=== PATIENT | male | born 1930 | race Caucasian/White ===

== ENCOUNTER → 2016-05-08 | Outpatient (CLI) | payer MEDICARE, OTHER ==
[~2016-05-08] MED LIST: ALLE10TA10 PO; AMIO200T PO; ASPI1TAB69 PO; ASPI81TA82 PO; CALCTAB23 PO; FURO1TAB62 PO; GABA300C3 PO; GINK120T2 PO; GLUC500C3 PO; GLUC500C5 PO; GNP120TA3 PO; LASI20TA PO; LEVO.025 PO; LEVO25TA4 PO; LIDO5DIS35 TD; LORA-373 PO; LORA0.5T PO; LYSI1TAB2 PO; LYSI1TAB4 PO; METH500T3 PO; METO50TA11 PO; MULTTAB23 PO; OXYC1TAB63 PO; PACE200T4 PO; POTA-243 PO; POTA-267 PO; RAMI10CA PO; SENITAB PO; SENN1TAB PO; TOPR50TA PO; VITA100018 PO; VITA100064 PO; WARF-20 PO; [UNRECOGNIZED DRUG - CODE] PO; [UNRECOGNIZED DRUG - CODE] PO
[2016-05-08 10:28] LABS: MEAN CELL VOLUME 94.6 FL (80.0-100.0); MEAN CORPUSCULAR HEMOGLOBIN 31.8 PG (27.0-34.0); MEAN CORPUSCULAR HGB CONC 33.6 % (32.0-36.0); PLATELET COUNT 190 TH/MM3 (150-450); RED BLOOD COUNT 4.44 MIL/MM3 (4.50-5.90); RED CELL DISTRIBUTION WIDTH 13.9 % (11.6-17.2); REVIEW FLAG FINAL
[2016-05-08 11:07] LABS: ALKALINE PHOSPHATASE 77 U/L (45-117); ALT (GPT) 30 U/L (12-78); ANION GAP 10 MEQ/L (5-15); AST (GOT) 21 U/L (15-37); BICARBONATE 26.3 MEQ/L (21.0-32.0); BLOOD UREA NITROGEN 21 MG/DL (7-18); CHLORIDE 111 MEQ/L (98-107); GLOMERULAR FILTRATION RATE 84 ML/MIN (>89); GLUCOSE,FASTING 89 MG/DL (74-99); HDL CHOLESTEROL 66.8 MG/DL (40.0-60.0); LDL CHOLESTEROL 43 MG/DL (0-99); POTASSIUM 4.3 MEQ/L (3.5-5.1); SODIUM (NA) 147 MEQ/L (136-145); TOTAL BILIRUBIN ADULT 0.5 MG/DL (0.2-1.0)
== END ==
LOC: PLAB 08:57
PROVIDERS: ATTEND Internal Medicine Interventional Cardiology
DX: I48.91 Unspecified atrial fibrillation (principal); R53.83 Other fatigue; I10 Essential (primary) hypertension; E78.00 Pure hypercholesterolemia, unspecified; I25.10 Atherosclerotic heart disease of native coronary artery without angina pectoris; I11.9 Hypertensive heart disease without heart failure; E78.2 Mixed hyperlipidemia; I44.7 Left bundle-branch block, unspecified; I35.1 Nonrheumatic aortic (valve) insufficiency
CPT/HCPCS: 36415; 80053; 80061; 84443; 85027

== ENCOUNTER 2016-06-06 13:31 | Inpatient (IN) | payer MEDICARE, OTHER ==
[~2016-06-06] VITALS: Ht 162.6 cm; Wt 68.1 kg
[~2016-06-06 13:31] MED LIST changes: -ALLE10TA10 PO; -AMIO200T PO; -ASPI1TAB69 PO; -CALCTAB23 PO; -FURO1TAB62 PO; -GINK120T2 PO; -GLUC500C5 PO; -LEVO25TA4 PO; -LIDO5DIS35 TD; -LORA-373 PO; -LYSI1TAB4 PO; -METH500T3 PO; -MULTTAB23 PO; -OXYC1TAB63 PO; -POTA-243 PO; -SENN1TAB PO; -TOPR50TA PO; -VITA100064 PO
[2016-06-06 13:39] VITALS: BP 119/68; PULSE 107; RESP 16; TEMP 97.5; O2SAT 99
[2016-06-06] MEDS ORDERED: ASPI1TAB69 PO (14:10)
[2016-06-06] MEDS ORDERED: LORA-373 PO (14:10)
[2016-06-06] MEDS ORDERED: [UNRECOGNIZED DRUG - CODE] PO (14:10)
[2016-06-06] MEDS ORDERED: POTA-243 PO (14:10)
[2016-06-06] MEDS ORDERED: RAMI10CA PO (14:10)
[2016-06-06] MEDS ORDERED: VITA100064 PO (14:10)
[2016-06-06] MEDS ORDERED: GINK120T2 PO (14:10)
[2016-06-06] MEDS ORDERED: MULTTAB23 PO (14:10)
[2016-06-06] MEDS ORDERED: ALLE10TA10 PO (14:10)
[2016-06-06] MEDS ORDERED: FURO1TAB62 PO (14:10)
[2016-06-06] MEDS ORDERED: TOPR50TA PO (14:10)
[2016-06-06] MEDS ORDERED: GLUC500C5 PO (14:10)
[2016-06-06] MEDS ORDERED: WARF-20 PO (14:10)
[2016-06-06] MEDS ORDERED: AMIO200T PO (14:10)
[2016-06-06] MEDS ORDERED: LYSI1TAB4 PO (14:10)
[2016-06-06] MEDS ORDERED: CALCTAB23 PO (14:10)
[2016-06-06] MEDS ORDERED: LEVO25TA4 PO (14:10)
[2016-06-06] MEDS ORDERED: ONDANSETRON HCL 4 MG/2 ML VIAL IV PUSH ONE ×2 (14:45→18:15)
[2016-06-06] MEDS ORDERED: MORPHINE SULFATE 4 MG/ML INJ IV PUSH ONE ×3 (14:45→19:15)
--- NOTE | 2016-06-06 15:15 | PD ---
HPI Chief Complaint: Fall Time Seen by Provider: 14:19 Travel History International Travel<30 days: No Contact w/Intl Traveler<30days: No Traveled to known affect area: No History of Present Illness HPI Patient is an 85-year-old male comes in after a trip and fall today. He says he was working in the yard when he tripped over a sprinkler head and fell onto his left side. He is complaining of pain to his left shoulder and his left ribs. He has a lot of pain with movement of the left shoulder, and pain with taking a deep breath. He took 2 Tylenol at home prior to coming in. He does report taking Coumadin. He says he did not hit his head. His family member with him says he saw him fall and says that he definitely did not hit his head. He denies any headache, neck pain. He denies having any chest pain or dizziness prior to the fall. PFSH Past Medical History Hx Anticoagulant Therapy: Yes (coumadin therapy) Atrial Fibrillation: Yes Cancer: No Cardiovascular Problems: Yes (htn on meds, 5 vessel bypass 1991) High Cholesterol: Yes Coronary Artery Disease: Yes Diminished Hearing: No Endocrine: No GERD: Yes Genitourinary: Yes Hypertension: Yes Implanted Vascular Access Dvce: No Kidney Stones: Yes Past Surgical History Cholecystectomy: Yes Coronary Artery Bypass Graft: Yes (5 arteries) Eye Surgery: Yes (bilat cataract removal) Other Surgery: Yes (testicular sx) Social History Alcohol Use: No Tobacco Use: No Substance Use: No Allergies-Medications (Allergen,Severity, Reaction): Coded Allergies: Codeine (Verified Allergy, Severe, Nausea/Vomiting, 06/06/16) Reported Meds & Prescriptions Reported Meds & Active Scripts Active Reported Aspirin 81 Mg Tabdr 81 Mg PO DAILY Lorazepam 0.5 Mg Tab 1 Mg PO HS PRN Klor-Con 10 (Potassium Chloride) 10 Meq Tab 10 Meq PO DAILY Lasix (Furosemide) 20 Mg Tab 20 Mg PO DAILY Glucosamine (Glucosamine Sulfate) 500 Mg Cap 500 Mg PO DAILY Ginkgo Biloba 120 Mg Tab 1 Tab PO DAILY Lysine (Lysine HCl) 500 Mg Tab 1 Tab PO DAILY Allergy (Loratadine) 10 Mg Tab 1 Tab PO DAILY Warfarin 4 Mg Tab 4 Mg PO DAILY Levothyroxine (Levothyroxine Sodium) 25 Mcg Tab 25 Mcg PO DAILY Toprol XL (Metoprolol Succinate) 50 Mg Tab 50 Mg PO DAILY Vitamin D (Cholecalciferol) 1,000 Unit Tab 1,000 Units PO DAILY Amiodarone (Amiodarone HCl) 200 Mg Tab 100 Mg PO 3 TIMES A WEEK Multi For Him 50+ (Multiple Vitamins W/ Minerals) 1 Tab Tab 1 Tab PO DAILY Ramipril 10 Mg Cap 10 Mg PO DAILY Calcium 500 + D (Calcium Carbonate-Vitamin D) 500-125 Mg-Unit Tab 1 Tab PO DAILY Caduet (Amlodipine-Atorvastatin) 5-40 Mg Tab 1 Tab PO DAILY Review of Systems Except as stated in HPI: all other systems reviewed are Neg General / Constitutional: No: Fever, Chills Eyes: No: Blurred Vision HENT: No: Headaches, Lightheadedness Cardiovascular: No: Chest Pain or Discomfort Respiratory: No: Shortness of Breath Gastrointestinal: No: Nausea, Vomiting Musculoskeletal: Positive: Arthralgias, Limited ROM Skin: No Change in Pigmentation Neurologic: No: Weakness, Dizziness, Sensory Disturbance Physical Exam Narrative GENERAL: Awake and alert in mild distress due to pain. SKIN: Warm and dry. HEAD: Atraumatic. Normocephalic. EYES: Pupils equal and round. No scleral icterus. ENT: Mucous membranes pink and moist. NECK: Trachea midline. No JVD. No cervical spine tenderness. CARDIOVASCULAR: Regular rate and rhythm. No murmur appreciated. Tender to palpation of the posterior chest on the left side. RESPIRATORY: No accessory muscle use. Clear to auscultation. Breath sounds equal bilaterally. MUSCULOSKELETAL: Tender to palpation of the left anterior shoulder. Unable to fully abduct the left shoulder. Radial pulse intact. Sensation intact to the left arm. NEUROLOGICAL: Awake and alert. No obvious cranial nerve deficits. Motor grossly within normal limits. Normal speech. PSYCHIATRIC: Appropriate mood and affect; insight and judgment normal. Data Data Last Documented VS Vital Signs Date Time Temp Pulse Resp B/P Pulse Ox O2 Delivery O2 Flow Rate FiO2 06/06/16 13:39 97.5 107 16 119/68 99 Orders Iv Access Insert/Monitor (06/06/16 14:36) Act Partial Throm Time (Ptt) (06/06/16 14:36) Prothrombin Time / Inr (Pt) (06/06/16 14:36) Morphine Inj (Morphine Inj) (06/06/16 14:45) Ondansetron Inj (Zofran Inj) (06/06/16 14:45) Ribs, Uni (W/Exp Cxr-Min 3vw) (06/06/16 ) Shoulder, Complete (>2vws) (06/06/16 ) Ct Shoulder W/O Contrast (06/06/16 ) Morphine Inj (Morphine Inj) (06/06/16 16:00) Labs Laboratory Tests Test 06/06/16 15:07 Prothrombin Time 21.2 SEC Prothromb Time International 1.9 RATIO Ratio Activated Partial 30.6 SEC Thromboplast Time MDM Medical Decision Making Medical Screen Exam Complete: Yes Emergency Medical Condition: Yes Medical Record Reviewed: Yes Differential Diagnosis Humeral fracture versus shoulder dislocation versus rib fracture Narrative Course Patient is an 85-year-old male comes in after a fall today complaining of left shoulder pain and left rib pain. Exam shows tenderness to the left shoulder as well as pain with abduction of the shoulder. X-ray obtained of the shoulder and the ribs. X-ray shows subtle fractures of the posterior eighth and ninth ribs. Shoulder x-ray shows degenerative changes and rotator cuff injury. Patient is still unable to completely abduct his left shoulder. CT will be obtained to look for any occult fracture. Patient given morphine for pain with some improvement of symptoms. Patient signed out to Dr. Cueto to follow up CT and disposition appropriately. Will need incentive spirometer when discharged. Leonor Katz MD Jun 06, 2016 15:15
--- NOTE | 2016-06-06 15:24 | RADHPO ---
EXAM DATE/TIME: 06/06/2016 14:44 [facility] COMPARISON: No previous studies available for comparison. INDICATIONS : Left side pain after falling in the yard today. MEDICAL HISTORY : None. SURGICAL HISTORY : None. ENCOUNTER: Initial ACUITY: 1 day PAIN SCORE: 8/10 LOCATION: Left ribs. FINDINGS: Multiple views of the left ribs were performed. There is subtle nondisplaced fractures of left eighth and ninth posterior lateral ribs. No destructive lesions or areas of periosteal thickening are seen. Pleural calcifications are present. Expiratory view of the chest is negative for pneumothorax. The mediastinal structures are midline. The patient status post median sternotomy. CONCLUSION: Subtle nondisplaced fractures of the left eighth and ninth posterior lateral ribs. Dino Byrd MD on June 06, 2016 at 15:20 Board Certified Radiologist. This report was verified electronically.
--- NOTE | 2016-06-06 15:26 | RADHPO ---
EXAM DATE/TIME: 06/06/2016 14:50 [facility] COMPARISON: No previous studies available for comparison. INDICATIONS : Left shoulder pain after falling in the yard today. MEDICAL HISTORY : None. SURGICAL HISTORY : None. ENCOUNTER: Initial ACUITY: 1 day PAIN SCORE: 8/10 LOCATION: Left shoulder. FINDINGS: AP views of the left shoulder were obtained with internal and external rotation as well as Y. view of the scapula. This demonstrates chronic rotator cuff degeneration with superior migration of the myla ral head and narrowing of the acromiohumeral distance. There is sclerosis and eburnation of the acrom ion. There is diffuse osteopenia with no acute fracture. The soft tissues are unremarkable. CONCLUSION: 1. Evidence of chronic rotator cuff degeneration as described. 2. Osteopenia with no acute fracture or malalignment. Dino Byrd MD on June 06, 2016 at 15:23 Board Certified Radiologist. This report was verified electronically.
[2016-06-06 16:08] LABS: APTT (PATIENT) 30.6 SEC (24.3-30.1); INTERNATIONAL NORMALIZED RATIO 1.9 RATIO; PROTHROMBIN TIME - PATIENT 21.2 SEC (9.8-11.6)
--- NOTE | 2016-06-06 17:38 | RADHPO ---
EXAM DATE/TIME: 06/06/2016 17:00 [facility] COMPARISON: SHOULDER LEFT COMPLETE (>2VWS), June 06, 2016, 14:50. INDICATIONS : Left shoulder pain post fall. RADIATION DOSE: 19.61 CTDIvol (mGy) MEDICAL HISTORY : Hypertension. SURGICAL HISTORY : CABG ENCOUNTER: Initial ACUITY: 1 day PAIN SCALE: 6/10 LOCATION: Left scapular TECHNIQUE: Volumetric scanning of the shoulder was performed. Using automated exposure control and adjustment o f the mA and/or kV according to patient size, radiation dose was kept as low as reasonably achievable to obtain optimal diagnostic quality images. FINDINGS: BONES: Minimally displaced fracture through the scapular spine. There appears to be chronic fracture deformi ty through the posterior aspect of the left eighth rib. JOINTS: Marked narrowing of the acromiohumeral interval characteristic of a chronic rotator cuff injury with bone on bone articulation. SOFT TISSUES: Muscles, tendons, and neurovascular structures are grossly unremarkable. The integrity of the rotato r cuff tendons cannot be reliably evaluated on CT without intra-articular contrast. Patient does have a small left-sided effusion and there is a small left-sided pneumothorax as well. Scattered pleural- based calcifications in the left hemithorax are characteristic of prior asbestos exposure. CONCLUSION: 1. Minimally displaced fracture through the scapular spine with approximately 3 mm of distraction of the fracture fragment. Alignment is otherwise anatomic. 2. Small left pneumothorax with a tiny left pleural effusion. 3. Marked narrowing of the acromiohumeral interval characteristic of a chronic rotator cuff injury. 4. Pleural-based calcifications in the left hemithorax characteristic of prior asbestos exposure. Jef Jones MD on June 06, 2016 at 17:29 Board Certified Radiologist. This report was verified electronically.
--- NOTE | 2016-06-06 17:55 | PD ---
HPI Chief Complaint: Fall Time Seen by Provider: 17:45 Travel History International Travel<30 days: No Contact w/Intl Traveler<30days: No Traveled to known affect area: No History of Present Illness HPI This 85-year-old male had a fall. He tripped and landed on his left shoulder and chest. Plain films have shown subtle nondisplaced fractures of the eighth and ninth left-sided ribs. X-ray of the shoulder showed extensive degenerative changes. Because he was having a lot of pain in the shoulder scan has been ordered. The CT scan shows a minimally displaced fracture through the Scapular spine. There is also a small left pneumothorax with a tiny left pleural effusion. Patient is having pain which is aggravated by breathing. He is not complaining of shortness of breath. He does have a history of atrial fibrillation and is on Coumadin. PFSH Past Medical History Hx Anticoagulant Therapy: Yes (coumadin therapy) Atrial Fibrillation: Yes Cancer: No Cardiovascular Problems: Yes (htn on meds, 5 vessel bypass 1991) High Cholesterol: Yes Coronary Artery Disease: Yes Diminished Hearing: No Endocrine: No GERD: Yes Genitourinary: Yes Hypertension: Yes Implanted Vascular Access Dvce: No Kidney Stones: Yes Past Surgical History Cholecystectomy: Yes Coronary Artery Bypass Graft: Yes (5 arteries) Eye Surgery: Yes (bilat cataract removal) Other Surgery: Yes (testicular sx) Social History Alcohol Use: No Tobacco Use: No Substance Use: No Allergies-Medications (Allergen,Severity, Reaction): Coded Allergies: Codeine (Verified Allergy, Severe, Nausea/Vomiting, 06/06/16) Reported Meds & Prescriptions Reported Meds & Active Scripts Active Reported Aspirin 81 Mg Tabdr 81 Mg PO DAILY Lorazepam 0.5 Mg Tab 1 Mg PO HS PRN Klor-Con 10 (Potassium Chloride) 10 Meq Tab 10 Meq PO DAILY Lasix (Furosemide) 20 Mg Tab 20 Mg PO DAILY Glucosamine (Glucosamine Sulfate) 500 Mg Cap 500 Mg PO DAILY Ginkgo Biloba 120 Mg Tab 1 Tab PO DAILY Lysine (Lysine HCl) 500 Mg Tab 1 Tab PO DAILY Allergy (Loratadine) 10 Mg Tab 1 Tab PO DAILY Warfarin 4 Mg Tab 4 Mg PO DAILY Levothyroxine (Levothyroxine Sodium) 25 Mcg Tab 25 Mcg PO DAILY Toprol XL (Metoprolol Succinate) 50 Mg Tab 50 Mg PO DAILY Vitamin D (Cholecalciferol) 1,000 Unit Tab 1,000 Units PO DAILY Amiodarone (Amiodarone HCl) 200 Mg Tab 100 Mg PO 3 TIMES A WEEK Multi For Him 50+ (Multiple Vitamins W/ Minerals) 1 Tab Tab 1 Tab PO DAILY Ramipril 10 Mg Cap 10 Mg PO DAILY Calcium 500 + D (Calcium Carbonate-Vitamin D) 500-125 Mg-Unit Tab 1 Tab PO DAILY Caduet (Amlodipine-Atorvastatin) 5-40 Mg Tab 1 Tab PO DAILY Review of Systems General / Constitutional: No: Fever, Chills Eyes: No: Blurred Vision HENT: No: Headaches Cardiovascular: Positive: Chest Pain or Discomfort, No: Palpitations Respiratory: Positive: Pleuritic Pain, No: Shortness of Breath Gastrointestinal: No: Vomiting, Diarrhea Genitourinary: No: Urgency, Frequency Musculoskeletal: No: Myalgias Skin: No Rash Neurologic: No: Weakness Endocrine: No: Heat Intolerance Hematologic/Lymphatic: Positive: Easy Bruising Physical Exam Narrative See Dr. High's note. The patient does have some left-sided chest wall pain. His lung sounds are clear. He has some tenderness in the left posterior portion of the scapula Data Data Last Documented VS Vital Signs Date Time Temp Pulse Resp B/P Pulse Ox O2 Delivery O2 Flow Rate FiO2 06/06/16 13:39 97.5 107 16 119/68 99 Orders Iv Access Insert/Monitor (06/06/16 14:36) Act Partial Throm Time (Ptt) (06/06/16 14:36) Prothrombin Time / Inr (Pt) (06/06/16 14:36) Morphine Inj (Morphine Inj) (06/06/16 14:45) Ondansetron Inj (Zofran Inj) (06/06/16 14:45) Ribs, Uni (W/Exp Cxr-Min 3vw) (06/06/16 ) Shoulder, Complete (>2vws) (06/06/16 ) Ct Shoulder W/O Contrast (06/06/16 ) Morphine Inj (Morphine Inj) (06/06/16 16:00) Resp Incentive Spirometry (06/06/16 ) Complete Blood Count With Diff (06/06/16 17:45) Basic Metabolic Panel (Bmp) (06/06/16 17:45) Admit Order (Ed Use Only) (06/06/16 17:57) Labs Laboratory Tests Test 06/06/16 15:07 Prothrombin Time 21.2 SEC Prothromb Time International 1.9 RATIO Ratio Activated Partial 30.6 SEC Thromboplast Time MDM Medical Decision Making Medical Screen Exam Complete: Yes Emergency Medical Condition: Yes Medical Record Reviewed: Yes Differential Diagnosis Differential includes rib fracture, pneumothorax, fractured scapula Narrative Course Patient has 2 rib fractures apparent on rib films as well as a small apical pneumothorax seen on his shoulder CT. He is alert and appears stable. He will need observation to make sure the pneumothorax does not progress Diagnosis Primary Impression: Pneumothorax, left Additional Impressions: Ribs, multiple fractures Qualified Code: S22.42XA - Closed fracture of multiple ribs of left side, initial encounter Left scapula fracture Qualified Code: S42.192A - Closed fracture of other part of left scapula, initial encounter Admitting Information Admitting Physician Requests: Admit Tejinder Cueto MD Jun 06, 2016 17:55
[2016-06-06 18:06] LABS: AUTOMATED NEUTROPHIL # 11.2 TH/MM3 (1.8-7.7); BASOPHIL # 0.1 TH/MM3 (0-0.2); BASOPHIL % 0.9 % (0.0-2.0); EOSINOPHIL # 0.1 TH/MM3 (0-0.4); EOSINOPHIL % 0.9 % (0.0-4.0); HEMATOCRIT 43.3 % (39.0-51.0); LYMPH % 8.4 % (9.0-44.0); LYMPHOCYTE # 1.1 TH/MM3 (1.0-4.8); MEAN CORPUSCULAR HEMOGLOBIN 31.8 PG (27.0-34.0); MEAN CORPUSCULAR HGB CONC 33.5 % (32.0-36.0); MONO % 6.8 % (0.0-8.0); PLATELET COUNT 228 TH/MM3 (150-450); RED BLOOD COUNT 4.56 MIL/MM3 (4.50-5.90); RED CELL DISTRIBUTION WIDTH 13.3 % (11.6-17.2); WHITE BLOOD COUNT 13.4 TH/MM3 (4.0-11.0)
[2016-06-06 18:09] LABS: HEMO FLAGS DIFF FINAL
[2016-06-06 18:13] LABS: POTASSIUM 5.1 MEQ/L (3.5-5.1)
[2016-06-06 18:16] LABS: BICARBONATE 25.1 MEQ/L (21.0-32.0)
[2016-06-06 19:06] VITALS: BP 119/73; PULSE 87; RESP 20; O2SAT 94
[2016-06-06 21:00] VITALS: BP 134/62; PULSE 88; RESP 20; O2SAT 95
[2016-06-07] VITALS (16 sets, daily range): BP systolic 130–166; BP diastolic 58–88; PULSE 68–89; RESP 16–20; TEMP 97–98.2; O2SAT 92–96
[2016-06-07] MEDS ORDERED: SODIUM CHLORIDE FLUSH PRN IVF (01:45)
[2016-06-07] MEDS ORDERED: ONDANSETRON HCL 4 MG/2 ML VIAL IV PUSH PRN (01:45)
[2016-06-07] MEDS: MORPHINE SULFATE 4 MG/ML INJ IV PRN ×5 (02:06→23:27)
[2016-06-07 06:37] LABS: INTERNATIONAL NORMALIZED RATIO 1.7 RATIO
--- NOTE | 2016-06-07 06:43 | RADHPO ---
EXAM DATE/TIME: 06/07/2016 06:31 [facility] COMPARISON: No previous studies available for comparison. INDICATIONS : Fall. Follow up. Rib fractures. MEDICAL HISTORY : None. SURGICAL HISTORY : None. ENCOUNTER: Subsequent ACUITY: 3 days PAIN SCORE: 8/10 LOCATION: Bilateral chest FINDINGS: Changes of the spine and extensive atherosclerotic calcifications of the aorta are noted. Cardiomegal y. No consolidation or effusion. High riding humeral heads are noted bilaterally. CONCLUSION: No acute disease. Derek Burgess MD on June 07, 2016 at 6:40 Board Certified Radiologist. This report was verified electronically.
[2016-06-07] MEDS: DOCUSATE SODIUM 50 MG/SENNA 8.6 MG TAB PO SCH ×2 (09:00→21:58)
[2016-06-07] MEDS ORDERED: SODIUM CHLORIDE 0.9% FLUSH 5 ML FLUSH IVF PRN (09:00)
[2016-06-07] MEDS ORDERED: ONDANSETRON HCL 4 MG/2 ML VIAL IV PRN (09:00)
[2016-06-07] MEDS: SODIUM CHLORIDE FLUSH BID IVF SCH ×2 (09:00→21:58)
[2016-06-07] MEDS ORDERED: ACETAMINOPHEN 1000 MG/100 ML VIAL IV SCH (09:00)
[2016-06-07] MEDS ORDERED: FAMOTIDINE 20 MG TAB PO SCH (09:00)
[2016-06-07] MEDS: LIDOCAINE HCL 5% PATCH TD SCH (10:22)
[2016-06-07] MEDS: ACETAMINOPHEN 1000 MG/100 ML VIAL IV SCH ×3 (10:23→21:59)
[2016-06-07 11:04] LABS: MEAN CELL VOLUME 95.2 FL (80.0-100.0); MEAN CORPUSCULAR HEMOGLOBIN 31.5 PG (27.0-34.0); MEAN CORPUSCULAR HGB CONC 33.1 % (32.0-36.0); PLATELET COUNT 230 TH/MM3 (150-450); RED BLOOD COUNT 4.21 MIL/MM3 (4.50-5.90); RED CELL DISTRIBUTION WIDTH 13.9 % (11.6-17.2); REVIEW FLAG FINAL
[2016-06-07 11:06] LABS: POTASSIUM 4.7 MEQ/L (3.5-5.1)
[2016-06-07 11:09] LABS: BICARBONATE 26.6 MEQ/L (21.0-32.0)
[2016-06-07] MEDS ORDERED: IOHEXOL 350 MG/ML 10 ML VIAL (for RAD DIAG) IV ONE (11:47)
--- NOTE | 2016-06-07 12:13 | RADHPO ---
EXAM DATE/TIME: 06/07/2016 11:34 [facility] COMPARISON: No previous studies available for comparison. INDICATIONS: Fall. Left chest and shoulder pain. IV CONTRAST: 60 cc Omnipaque 350 (iohexol) IV RADIATION DOSE: 11.69 CTDIvol (mGy) MEDICAL HISTORY: Hypertension. Cardiovascular disease Hypercholesterolemia. SURGICAL HISTORY: CABG Cholecystectomy. ENCOUNTER: Initial ACUITY: 1 day PAIN SCALE: 5/10 LOCATION: Left chest TECHNIQUE: Volumetric scanning of the chest was performed. Using automated exposure control and adjustment of t he mA and/or kV according to patient size, radiation dose was kept as low as reasonably achievable to obtain optimal diagnostic quality images. FINDINGS: Trace pneumothorax is seen on the left. Calcified pleural plaques are evident. Minimal bibasilar pa renchymal changes are noted. There is no axillary adenopathy. There is no mediastinal adenopathy. Portion of the liver and splee n identified are free of focal defects. Review of bone windows reveal degenerative changes about the left shoulder without fracture. There is no evidence for a rib fracture. CONCLUSION: 1. Trace pneumothorax in the left lung base. 2. Bibasilar parenchymal changes. 3. Otherwise negative for acute traumatic injury. Jose Harris MD FACR on June 07, 2016 at 11:59 Board Certified Radiologist. This report was verified electronically.
--- NOTE | 2016-06-07 17:15 | PD.CONS ---
HPI Service [facility] Consult Requested By Eleanor marie Reason for Consult medical mgt in patient with HTN/CABG Primary Care Physician Jasmyne Degroot Diagnoses: History of Present Illness Patient is an 85 year old male with independent ADL's who was out trimming trees and lost his balance. He has several injuries including rib fractures and PTX and scapular fx. He has not had any loss of dizziness. No recent fever or chills and actually has been in good state of health. He is accompanied to the emergency room by his daughter was that the patient has been losing his balance lately but overall is pretty independent with his personal care and has not had any traumatic falls. She was admitted to the trauma team for further evaluation. Medicine team was consulted due the patient's history of hypertension and coronary artery disease Review of Systems Constitutional: DENIES: Diaphoretic episodes, Fatigue, Fever, Weight gain, Weight loss, Chills, Dizziness, Change in appetite, Night Sweats Endocrine: DENIES: Heat/cold intolerance, Polydipsia, Polyuria, Polyphagia Eyes: DENIES: Blurred vision, Diplopia, Eye inflammation, Eye pain, Vision loss , Photosensitivity, Double Vision Ears, nose, mouth, throat: DENIES: Tinnitus, Hearing loss, Vertigo, Nasal discharge, Oral lesions, Throat pain, Hoarseness, Ear Pain, Running Nose, Epistaxis, Sinus Pain, Toothache, Odynophagia Gastrointestinal: DENIES: Abdominal pain, Black stools, Bloody stools, Constipation, Diarrhea, Nausea, Vomiting, Difficulty Swallowing, Anorexia Musculoskeletal: DENIES: Joint pain, Muscle aches, Stiffness, Joint Swelling, Back pain, Neck pain Integumentary: DENIES: Abnormal pigmentation, Nail changes, Pruritus, Rash Hematologic/lymphatic: DENIES: Bruising, Lymphadenopathy Psychiatric: DENIES: Anxiety, Confusion, Mood changes, Depression, Hallucinations, Agitation, Suicidal Ideation, Homicidal Ideation, Delusions Past Family Social History Allergies: Coded Allergies: Codeine (Verified Allergy, Severe, Nausea/Vomiting, 06/06/16) Past Medical History Hypertension Cardiac bypass/cardiac disease Afib/coumadin Past Surgical History GB Cataracts CABG Reported Medications Reviewed in the medical record, none recently changed Active Ordered Medications Reviewed in the medical record Family History Patient does not recall Social History Lives independently, no tobacco or alcohol dependency Physical Exam Vital Signs Vital Signs Date Time Temp Pulse Resp B/P Pulse Ox O2 Delivery O2 Flow Rate FiO2 06/07/16 15:43 74 16 96 Nasal Cannula 2 06/07/16 15:28 74 16 148/58 94 Nasal Cannula 2 06/07/16 14:28 98.2 68 16 130/58 96 Nasal Cannula 2 06/07/16 13:29 69 18 143/66 95 Nasal Cannula 2 06/07/16 12:24 78 16 95 Nasal Cannula 2 06/07/16 10:54 16 06/07/16 10:44 98.0 88 18 144/72 95 Nasal Cannula 2 06/07/16 10:23 16 06/07/16 09:40 78 18 141/74 96 Nasal Cannula 2 06/07/16 08:40 78 18 136/65 95 Nasal Cannula 2 06/07/16 08:30 80 16 96 Nasal Cannula 2 06/07/16 07:40 98.1 74 18 139/63 96 Nasal Cannula 2 06/07/16 06:07 80 20 139/59 94 06/07/16 06:00 20 06/07/16 05:07 76 20 147/73 96 06/07/16 03:09 71 20 166/88 92 Nasal Cannula 2 06/07/16 00:00 74 20 149/77 92 Nasal Cannula 2 06/06/16 21:00 88 20 134/62 95 06/06/16 19:06 87 20 94 06/06/16 19:06 87 20 119/73 94 Physical Exam GENERAL: This is a well-nourished, well-developed patient, in no apparent distress. SKIN: No rashes, ecchymoses or lesions. Cool and dry. HEAD: Atraumatic. Normocephalic. No temporal or scalp tenderness. EYES: Pupils equal round and reactive. Extraocular motions intact. No scleral icterus. No injection or drainage. ENT: Nose without bleeding, purulent drainage or septal hematoma. Throat without erythema, tonsillar hypertrophy or exudate. Uvula midline. Airway patent. NECK: Trachea midline. No JVD or lymphadenopathy. Supple, nontender, no meningeal signs. CARDIOVASCULAR: Regular rate and rhythm without murmurs, gallops, or rubs. RESPIRATORY: Clear to auscultation. Breath sounds equal bilaterally. No wheezes , rales, or rhonchi. GASTROINTESTINAL: Abdomen soft, non-tender, nondistended. No hepato-splenomegaly , or palpable masses. No guarding. MUSCULOSKELETAL: Left shoulder sling, other 3 Extremities without clubbing, cyanosis, or edema. No joint tenderness, effusion, or edema noted. No calf tenderness. Negative Homans sign bilaterally. NEUROLOGICAL: Awake and alert. Cranial nerves II through XII intact. Motor and sensory grossly within normal limits. Five out of 5 muscle strength in all muscle groups. Normal speech. Laboratory Laboratory Tests Test 06/06/16 06/07/16 06/07/16 17:56 04:20 10:55 White Blood Count 13.4 13.0 Red Blood Count 4.56 4.21 Hemoglobin 14.5 13.3 Hematocrit 43.3 40.0 Mean Corpuscular Volume 95.0 95.2 Mean Corpuscular Hemoglobin 31.8 31.5 Mean Corpuscular Hemoglobin 33.5 33.1 Concent Red Cell Distribution Width 13.3 13.9 Platelet Count 228 230 Mean Platelet Volume 7.9 7.6 Neutrophils (%) (Auto) 83.0 Lymphocytes (%) (Auto) 8.4 Monocytes (%) (Auto) 6.8 Eosinophils (%) (Auto) 0.9 Basophils (%) (Auto) 0.9 Neutrophils # (Auto) 11.2 Lymphocytes # (Auto) 1.1 Monocytes # (Auto) 0.9 Eosinophils # (Auto) 0.1 Basophils # (Auto) 0.1 CBC Comment DIFF FINAL Differential Comment Sodium Level 142 143 Potassium Level 5.1 4.7 Chloride Level 106 108 Carbon Dioxide Level 25.1 26.6 Anion Gap 11 8 Blood Urea Nitrogen 28 40 Creatinine 1.20 1.30 Estimat Glomerular Filtration 57 52 Rate Random Glucose 119 143 Calcium Level 9.4 8.9 Prothrombin Time 19.0 Prothromb Time International 1.7 Ratio Activated Partial 32.0 Thromboplast Time Result Diagram: 06/07/16 1055 06/07/16 1055 Imaging Last Impressions Chest X-Ray 06/07/16 0000 Signed Impressions: Service Date/Time: Tuesday, June 07, 2016 06:31 - CONCLUSION: No acute disease. Derek Burgess MD Chest CT 06/07/16 0000 Signed Impressions: Service Date/Time: Tuesday, June 07, 2016 11:34 - CONCLUSION: 1. Trace pneumothorax in the left lung base. 2. Bibasilar parenchymal changes. 3. Otherwise negative for acute traumatic injury. Jose Harris MD FACR Upper Extremity CT 06/06/16 0000 Signed Impressions: Service Date/Time: Monday, June 06, 2016 17:00 - CONCLUSION: 1. Minimally displaced fracture through the scapular spine with approximately 3 mm of distraction of the fracture fragment. Alignment is otherwise anatomic. 2. Small left pneumothorax with a tiny left pleural effusion. 3. Marked narrowing of the acromiohumeral interval characteristic of a chronic rotator cuff injury. 4. Pleural-based calcifications in the left hemithorax characteristic of prior asbestos exposure. Jef Jones MD Shoulder X-Ray 06/06/16 0000 Signed Impressions: Service Date/Time: Monday, June 06, 2016 14:50 - CONCLUSION: 1. Evidence of chronic rotator cuff degeneration as described. 2. Osteopenia with no acute fracture or malalignment. Dino Byrd MD Ribs X-Ray 06/06/16 0000 Signed Impressions: Service Date/Time: Monday, June 06, 2016 14:44 - CONCLUSION: Subtle nondisplaced fractures of the left eighth and ninth posterior lateral ribs. Dino Byrd MD Assessment and Plan Problem List: (1) Traumatic injury ICD Code: T14.90 Status: Acute Plan: Continue medical management for now, general surgery follow-up Patient with scapular fracture, rib fractures and small pneumothorax continue IV narcotics for pain management (2) HTN (hypertension) ICD Code: I10 Status: Acute Plan: Stable at this time, continue home medications and pain control (3) Afib ICD Code: I48.91 Status: Acute Plan: Currently rate controlled, hold warfarin, continue home antiarrhythmics Code Status Full code Discussed Condition With LOG DECKMAN, patient and daughter Jacqueline Champagne Leda ALBARADO Jun 07, 2016 17:15
[2016-06-07] MEDS ORDERED: LORazepam 1 MG TAB PO PRN (17:30)
[2016-06-07] MEDS ORDERED: PILL SPLITTER OTHER PRN (17:30)
[2016-06-07] MEDS: REMOVE OLD PATCH T-DERMAL SCH (21:00)
[2016-06-07] MEDS: FAMOTIDINE 20 MG TAB PO SCH (21:58)
[2016-06-08] VITALS: BP 148/64; PULSE 79; RESP 18; TEMP 97.8; O2SAT 92
[2016-06-08] MEDS: ACETAMINOPHEN 1000 MG/100 ML VIAL IV SCH ×2 (03:06→08:49)
[2016-06-08] MEDS: MORPHINE SULFATE 4 MG/ML INJ IV PRN ×3 (03:08→19:03)
[2016-06-08 04:00] VITALS: BP_SYST 159; BP_SYST 95; BP_DIAS 54; BP_DIAS 77; PULSE 57; PULSE 87; RESP 17; RESP 19; TEMP 96.7; TEMP 96.8; O2SAT 92; O2SAT 96
[2016-06-08] MEDS: LEVOTHYROXINE SODIUM 25 MCG TAB PO SCH (04:53)
[2016-06-08 04:56] LABS: HEMATOCRIT 38.5 % (39.0-51.0); MEAN CELL VOLUME 96.3 FL (80.0-100.0); MEAN CORPUSCULAR HEMOGLOBIN 31.9 PG (27.0-34.0); MEAN CORPUSCULAR HGB CONC 33.2 % (32.0-36.0); PLATELET COUNT 172 TH/MM3 (150-450); RED CELL DISTRIBUTION WIDTH 13.8 % (11.6-17.2); REVIEW FLAG FINAL; WHITE BLOOD COUNT 11.1 TH/MM3 (4.0-11.0)
[2016-06-08 05:16] LABS: POTASSIUM 4.6 MEQ/L (3.5-5.1)
[2016-06-08 05:19] LABS: INTERNATIONAL NORMALIZED RATIO 1.7 RATIO; PROTHROMBIN TIME - PATIENT 18.8 SEC (9.8-11.6)
[2016-06-08] MEDS ORDERED: MAGNESIUM HYDROXIDE SUSP 30 ML CUP PO PRN (05:45)
--- NOTE | 2016-06-08 06:39 | MH ---
cc: SANDY FOSTER DATE OF ADMISSION: 06/06/2016 DATE OF 1930 HISTORY This is an 85-year-old male who tripped, falling onto his left side. He was evaluated at [facility], found to have scapular fracture, rib fractures and a small apical pneumothorax. He was transferred to [facility] for trauma eval. The patient's complains are of pain on his left side. No shortness of breath, no headaches. Denies loss of consciousness. No abdominal pain. No paresthesias. PAST MEDICAL HISTORY Significant for - 1. Atrial fibrillation. 2. Hypertension. 3. Hypothyroidism. SURGICAL HISTORY Significant for - 1. Cholecystectomy. 2. CABG. 3. Eye surgery. ALLERGIES CODEINE. MEDICATIONS He is on multiple medications including - 1. Warfarin. 2. Lorazepam. 3. Levothyroxine. 4. Toprol. 5. Amiodarone. 6. Ramipril. SOCIAL HISTORY He does not smoke or drink alcohol. FAMILY HISTORY Noncontributory. REVIEW OF SYSTEMS Significant for above. All other 10-point review negative. PHYSICAL EXAMINATION GENERAL: On exam he is laying in bed in no acute distress. HEENT: His pupils are 3, equal and reactive. NECK: His trachea is midline. LUNGS: Respirations clear. EXTREMITIES: Left upper extremity in sling. CHEST: Tenderness to palpation in his chest, no crepitus. GASTROINTESTINAL: Soft, nondistended. NEUROLOGICAL: Nonfocal. MUSCULOSKELETAL: No deformities. RADIOLOGICAL IMAGES The patient had a CAT scan of his shoulder of his upper extremities which revealed shoulder fracture. He had a rib x-rays that showed left-sided eighth and ninth rib fracture. Repeat chest x-ray on 06/07 - No evidence of pneumothorax. ASSESSMENT This is a patient status post fall on anticoagulant with a small pneumothorax that has resolved on followup x-ray. He has rib fractures and scapular fracture. PLAN 1. Orthopedics has been consulted. 2. [facility] [place] has seen the patient and is following him for his primary medical problems. Awaiting orthopedics and will provide pain management. 3. Monitor pulmonary status. MD DAVID Morales/KAREN /5:49 AM /6:20 AM
[2016-06-08 08:00] VITALS: BP 166/73; PULSE 110; RESP 18; TEMP 97.7; O2SAT 93
[2016-06-08] MEDS: HYDROmorphone HCL 2 MG TAB PO PRN ×3 (08:46→21:41)
[2016-06-08] MEDS: ATORVASTATIN 40 MG TAB PO SCH (08:47)
[2016-06-08] MEDS: FUROSEMIDE 20 MG TAB PO SCH (08:47)
[2016-06-08] MEDS: FAMOTIDINE 20 MG TAB PO SCH ×2 (08:47→21:40)
[2016-06-08] MEDS: AMIODARONE 200 MG TAB PO SCH (08:47)
[2016-06-08] MEDS: METOPROLOL SUCCINATE 50 MG EXTENDED RELEASE TAB PO SCH (08:47)
[2016-06-08] MEDS: amLODIPine BESYLATE 5 MG TAB PO SCH (08:47)
[2016-06-08] MEDS: DOCUSATE SODIUM 50 MG/SENNA 8.6 MG TAB PO SCH ×2 (08:48→21:40)
[2016-06-08] MEDS: RAMIPRIL 5 MG CAP PO SCH (08:48)
[2016-06-08] MEDS: LIDOCAINE HCL 5% PATCH TD SCH (08:49)
[2016-06-08] MEDS: SODIUM CHLORIDE FLUSH BID IVF SCH ×2 (08:59→21:00)
[2016-06-08] MEDS ORDERED: AMLODIPINE ATORVASTATIN PO SCH (09:00)
--- NOTE | 2016-06-08 10:47 | MB ---
cc: RAMÓN NAVAS DATE OF CONSULTATION 06/08/2016 REASON FOR CONSULTATION Left shoulder and left-sided rib pain. HISTORY Mr. Vázquez is an 85-year-old male who apparently had a trip and fall accident landing on his left side. He was originally sent to the [facility] and was diagnosed with a pneumothorax as well as left-sided scapular fracture and left sided rib fractures. He is transferred to [facility]. Currently the patient has been admitted and was seen in his hospital room. He states that he has continued left-sided rib pain as well as left shoulder pain. He is in a sling, states this helps. He denies any numbness or tingling in the left upper extremity. He does note he had limited motion in his shoulder previously. He has no other major complaints. He does deny shortness breath, headaches, chest pain. The patient did not lose consciousness during his fall. PAST MEDICAL HISTORY 1. Atrial fibrillation. 2. Hypothyroidism. 3. Hypertension. PAST SURGICAL HISTORY 1. Cholecystectomy. 2. CABG. 3. Eye surgery. ALLERGIES CODEINE. MEDICATIONS 1. Warfarin. 2. Lorazepam. 3. Levothyroxine. 4. Toprol. 5. Amiodarone. 6. Ramipril. SOCIAL HISTORY The patient use of tobacco or alcohol. FAMILY HISTORY Noncontributory. REVIEW OF SYSTEMS A 12-point review of systems was performed and was negative except as mentioned in the HPI. LABORATORY DATA White blood cell count 11.1, hemoglobin 12.8, hematocrit 38.5, platelets 172. Coagulation - 1.7. PHYSICAL EXAMINATION General: The patient is lying in his hospital bed. He has a sling on his left upper extremity. He appears in no acute distress. Head, Ears, Nose And Throat: Pupils are receive equal, round, reactive to light. Neck: Supple. Trachea midline. No JVD. Lungs: Clear to auscultation bilaterally. Chest: He does have tenderness on the left side as well as slight discomfort with inhalation. The chest again it is tender on the left side over his rib cage. Heart: Regular rate and rhythm. No murmurs, rubs or gallops noted. GI: Soft, nontender, nondistended. Neurologic: Nonfocal. Musculoskeletal: No obvious deformities. He does have function of bilateral lower extremities, negative Homans. Neurovascular and sensation intact distally. Capillary refill is present. Regarding his upper extremities, he does have limited range of motion of his right shoulder, otherwise neurovascular and sensation intact. Left shoulder tenderness over the scapular region. Range of motion and strength testing not performed due to fracture. He is neurovascularly and sensation intact distally. He has 2+ radial pulse. He is able to flex and extend all five fingers. He has appropriate ged instructor strength in bilateral upper extremities. X-RAYS X-rays of the ribs shows left-sided fractures of the eighth and ninth ribs with no significant displacement. CT scan of the left shoulder shows a minimally displaced scapular fracture as well as high-riding humeral head consistent with chronic rotator cuff deficiency. The patient also had a chest x-ray with evidence of slight pneumothorax which has since resolved on the most recent chest x-ray. ASSESSMENT An 85-year-old male status post fall sustaining left-sided scapular fracture with minimal displacement as well as left-sided eighth and ninth rib fractures. The patient is on Coumadin and did have a small pneumothorax which has since resolved. PLAN Discussed diagnosis and treatment options with the patient at bedside as well as his daughter. I have recommend nonoperative management, continue with a sling. No significant weight to the left upper extremity. The patient may weight-bear as tolerated otherwise. The patient has been instructed to follow up with Dr. Ramón Navas at the [facility] in approximately 2 weeks from his discharge. The patient and the patient's daughter have asked appropriate questions which have all been answered. The patient's course of action has been discussed with Dr. Navas. He is orthopedically stable. Thank you for this consultation. Dictated by: Neo Aaron PA-C Ramón Navas MD JWM/SSB /9:05 AM /10:33 AM
[2016-06-08 12:00] VITALS: BP 152/75; PULSE 98; RESP 17; TEMP 98.5; O2SAT 94
[2016-06-08] MEDS ORDERED: oxyCODONE/ACETAMINOPHEN 5 MG/325 MG TAB PO PRN (12:00)
--- NOTE | 2016-06-08 13:33 | HHI.PR ---
Subjective Remarks Patient reports that he still having significant pain when he takes deep breath. His pain medication as been adjusted. Objective Vitals Vital Signs Date Time Temp Pulse Resp B/P Pulse Ox O2 Delivery O2 Flow Rate FiO2 06/08/16 12:00 98.5 98 17 152/75 94 06/08/16 08:00 97.7 110 18 166/73 93 06/08/16 04:00 96.7 87 19 159/77 92 06/08/16 00:00 97.8 79 18 148/64 92 06/08/16 00:00 97.8 79 18 148/64 92 06/07/16 20:05 69 20 140/66 95 06/07/16 20:00 97.0 89 18 154/77 92 06/07/16 19:42 Nasal Cannula 2 06/07/16 19:42 75 18 142/67 95 Nasal Cannula 2 06/07/16 18:44 16 96 Nasal Cannula 2 06/07/16 18:22 76 16 151/79 95 Room Air 06/07/16 17:17 16 06/07/16 16:28 98.0 72 16 145/71 95 Nasal Cannula 2 06/07/16 15:43 74 16 96 Nasal Cannula 2 06/07/16 15:28 74 16 148/58 94 Nasal Cannula 2 06/07/16 14:28 98.2 68 16 130/58 96 Nasal Cannula 2 I/O 06/07/16 06/07/16 06/07/16 06/08/16 06/08/16 06/08/16 07:00 15:00 23:00 07:00 15:00 23:00 Intake Total 100 ml 460 ml 240 ml Output Total 300 ml Balance -300 ml 100 ml 460 ml 240 ml Intake Oral 360 ml 240 ml IV Total 100 ml 100 ml Output Urine Total 300 ml # Voids 1 7 2 Result Diagram: 06/08/16 0341 06/08/16 0341 Imaging Last Impressions Chest X-Ray 06/07/16 0000 Signed Impressions: Service Date/Time: Tuesday, June 07, 2016 06:31 - CONCLUSION: No acute disease. Derek Burgess MD Chest CT 06/07/16 0000 Signed Impressions: Service Date/Time: Tuesday, June 07, 2016 11:34 - CONCLUSION: 1. Trace pneumothorax in the left lung base. 2. Bibasilar parenchymal changes. 3. Otherwise negative for acute traumatic injury. Jose Harris MD FACR Upper Extremity CT 06/06/16 0000 Signed Impressions: Service Date/Time: Monday, June 06, 2016 17:00 - CONCLUSION: 1. Minimally displaced fracture through the scapular spine with approximately 3 mm of distraction of the fracture fragment. Alignment is otherwise anatomic. 2. Small left pneumothorax with a tiny left pleural effusion. 3. Marked narrowing of the acromiohumeral interval characteristic of a chronic rotator cuff injury. 4. Pleural-based calcifications in the left hemithorax characteristic of prior asbestos exposure. Jef Jones MD Shoulder X-Ray 06/06/16 0000 Signed Impressions: Service Date/Time: Monday, June 06, 2016 14:50 - CONCLUSION: 1. Evidence of chronic rotator cuff degeneration as described. 2. Osteopenia with no acute fracture or malalignment. Dino Byrd MD Ribs X-Ray 06/06/16 0000 Signed Impressions: Service Date/Time: Monday, June 06, 2016 14:44 - CONCLUSION: Subtle nondisplaced fractures of the left eighth and ninth posterior lateral ribs. Dino Byrd MD Objective Remarks GENERAL: This is a well-nourished, well-developed patient, in no apparent distress. CARDIOVASCULAR: Normal rate and regular rhythm without murmurs, gallops, or rubs. RESPIRATORY: Good respiratory efforts. Breath sounds equal and clear to auscultation bilaterally. GASTROINTESTINAL: Abdomen soft, non-tender, non-distended. Normal active bowel sounds MUSCULOSKELETAL: Left arm/shoulder in a splint. Neurovascularly intact at the fingers. Tender to palpation over the left lower ribs anteriorly. NEURO: Alert & Oriented x4 to person, place, time, situation. Moves all ext x4 PSYCH: Appropriate mood and affect. A/P Problem List: (1) Ribs, multiple fractures ICD Code: S22.49XA Status: Acute (2) Left scapula fracture ICD Code: S42.102A Status: Acute (3) Traumatic injury ICD Code: T14.90 Status: Acute Plan: Continue medical management for now, trauma service following. Patient with scapular fracture, rib fractures and small pneumothorax continue IV narcotics for pain management Add incentive spirometry. Discussed with RN to ensure patient's pain is controlled (4) HTN (hypertension) ICD Code: I10 Status: Acute Plan: Stable at this time, continue home medications and pain control (5) Afib ICD Code: I48.91 Status: Acute Plan: Currently rate controlled, continue home antiarrhythmics. Orthopedics recommended nonoperative management. Will resume warfarin. Problem Qualifiers (1) Ribs, multiple fractures: Qualified Code: S22.42XA - Closed fracture of multiple ribs of left side, initial encounter (2) Left scapula fracture: Qualified Code: S42.192A - Closed fracture of other part of left scapula, initial encounter Belkis Winters MD Jun 08, 2016 13:33
--- NOTE | 2016-06-08 15:30 | HHI.PR ---
Subjective Subjective Notes Reports getting OOB to bathroom unassisted. Reports Morphine has been effective in reducing his pain Objective Vitals/I&O Vital Signs Date Time Temp Pulse Resp B/P Pulse Ox O2 Delivery O2 Flow Rate FiO2 06/08/16 12:00 98.5 98 17 152/75 94 06/07/16 19:42 Nasal Cannula 2 Labs Laboratory Tests Test 06/08/16 03:41 White Blood Count 11.1 Red Blood Count 4.00 Hemoglobin 12.8 Hematocrit 38.5 Mean Corpuscular Volume 96.3 Mean Corpuscular Hemoglobin 31.9 Mean Corpuscular Hemoglobin 33.2 Concent Red Cell Distribution Width 13.8 Platelet Count 172 Mean Platelet Volume 8.2 Prothrombin Time 18.8 Prothromb Time International 1.7 Ratio Sodium Level 139 Potassium Level 4.6 Chloride Level 105 Carbon Dioxide Level 23.0 Anion Gap 11 Blood Urea Nitrogen 32 Creatinine 1.01 Estimat Glomerular Filtration 70 Rate Random Glucose 120 Calcium Level 9.6 Radiology Last Impressions Chest X-Ray 06/07/16 0000 Signed Impressions: Service Date/Time: Tuesday, June 07, 2016 06:31 - CONCLUSION: No acute disease. Derek Burgess MD Chest CT 06/07/16 0000 Signed Impressions: Service Date/Time: Tuesday, June 07, 2016 11:34 - CONCLUSION: 1. Trace pneumothorax in the left lung base. 2. Bibasilar parenchymal changes. 3. Otherwise negative for acute traumatic injury. Jose Harris MD FACR Upper Extremity CT 06/06/16 0000 Signed Impressions: Service Date/Time: Monday, June 06, 2016 17:00 - CONCLUSION: 1. Minimally displaced fracture through the scapular spine with approximately 3 mm of distraction of the fracture fragment. Alignment is otherwise anatomic. 2. Small left pneumothorax with a tiny left pleural effusion. 3. Marked narrowing of the acromiohumeral interval characteristic of a chronic rotator cuff injury. 4. Pleural-based calcifications in the left hemithorax characteristic of prior asbestos exposure. Jef Jones MD Shoulder X-Ray 06/06/16 0000 Signed Impressions: Service Date/Time: Monday, June 06, 2016 14:50 - CONCLUSION: 1. Evidence of chronic rotator cuff degeneration as described. 2. Osteopenia with no acute fracture or malalignment. Dino Byrd MD Ribs X-Ray 06/06/16 0000 Signed Impressions: Service Date/Time: Monday, June 06, 2016 14:44 - CONCLUSION: Subtle nondisplaced fractures of the left eighth and ninth posterior lateral ribs. Dino Byrd MD Narrative Exam GENERAL: 85 year old well-nourished, well developed male lying in bed. SKIN: Warm and dry. NECK: Trachea midline. No JVD. CARDIOVASCULAR: Regular rate and rhythm. RESPIRATORY: No accessory muscle use. Lungs clear to auscultation. Breath sounds equal bilaterally. GASTROINTESTINAL: Abdomen soft, non-tender, nondistended. + BS. MUSCULOSKELETAL: Extremities without cyanosis, or edema. No obvious deformities. LEFT arm sling, + sensation, GÓMEZ. NEUROLOGICAL: Awake and alert. Normal speech. A/P Assessment and Plan INJURIES: LEFT rib fx (8,9) LEFT scapula fx (non-op) Small left PTX Diet: Regular Pulmonary: IS. Added acapella and EZPAP. Pain: Dilaudid 2 PO q6, Lidocaine patch. Added Percocet and Robaxin. Activity: OOB, PT, OT. (NWB LUE)- sling GI: Pepcid Bowel: Renuka-colace. MOM. No BM yet. [facility] consulted for medical management. Dr. Steele recommends nonoperative treatment for left scapula fracture. Cleared for discharge. Case management consulted for discharge planning. Patient likely will be able to go home with outpatient [facility] OT. Attending Statement patient seen at bedside rib fx scapular fx non op ok for dc Attestation The exam, history, and the medical decision-making described in the above note were completed with the assistance of the mid-level provider. I reviewed and agree with the findings presented. I attest that I had a [id number] encounter with the patient on the same day, and personally performed and documented my assessment and findings in the medical record. Mirna Dejesus Jun 08, 2016 15:30 Rubén Person MD Jun 17, 2016 02:53
[2016-06-08] MEDS: MAGNESIUM HYDROXIDE SUSP 30 ML CUP PO SCH (16:00)
[2016-06-08] MEDS: METHOCARBAMOL 500 MG TAB PO SCH ×2 (16:23→21:41)
--- NOTE | 2016-06-08 18:29 | HHI.PR ---
Subjective Remarks This is a note from utilization review committee in response to a possible code 44. I was asked by case management to see patient because they felt he did not meet Medicare criteria for full admission. After review of both the chart as well as visiting the patient, it is my opinion that patient definitely meets admission criteria. He was admitted by Dr. Encarnacion the evening of 06/06/16. He is an 85-year-old male who was admitted with trauma after losing his balance while trimming trees suffered rib fractures on the left with a small left pneumothorax and a left pleural effusion. Also fractured his scapula. He has medical problems of atrial fibrillation and is on Coumadin for anticoagulation. He was admitted and placed on IV pain medication of morphine sulfate and consultation with orthopedic service and also medical service. X-rays were followed and serial blood counts have been obtained showing the patient losing 1 and 1/2 units of blood in one and a half days.. Patient is still in extreme pain on breathing as well as movement. I visited the patient in room 1713 and visualized his pain and discomfort. On admission I believe this patient met the 2 midnight Medicare rule for proper evaluation and treatment as well as the need for intravenous morphine sulfate for pain control. He has had oral medication but it has not relieved much of t his discomfort. Therefore, I feel that full admission was and still is warranted. Signed: Dr. Trang Connors Jr., MD Objective Vital Signs Date Time Temp Pulse Resp B/P Pulse Ox O2 Delivery O2 Flow Rate FiO2 06/08/16 12:00 98.5 98 17 152/75 94 06/08/16 08:00 97.7 110 18 166/73 93 06/08/16 04:00 96.7 87 19 159/77 92 06/08/16 00:00 97.8 79 18 148/64 92 06/08/16 00:00 97.8 79 18 148/64 92 06/07/16 20:05 69 20 140/66 95 06/07/16 20:00 97.0 89 18 154/77 92 06/07/16 19:42 Nasal Cannula 2 06/07/16 19:42 75 18 142/67 95 Nasal Cannula 2 06/07/16 18:44 16 96 Nasal Cannula 2 06/07/16 18:22 76 16 151/79 95 Room Air I/O 2/8/17 2/806/07/16 06/08/16 06/08/16 06/08/16 07:00 15:00 23:00 07:00 15:00 23:00 Intake Total 100 ml 460 ml 240 ml 360 ml Output Total 300 ml Balance -300 ml 100 ml 460 ml 240 ml 360 ml Intake Oral 360 ml 240 ml 360 ml IV Total 100 ml 100 ml Output Urine Total 300 ml # Voids 1 7 2 4 # Bowel Movements 0 Result Diagram: 06/08/16 03406/08/16 034 Trang Connors Jr., MD Jun 08, 2016 18:29
[2016-06-08] MEDS ORDERED: DO NOT ADM ANY ANTICOAGULANT DRUGS XX PRN (19:00)
[2016-06-08 20:00] VITALS: BP 128/72; PULSE 119; RESP 19; TEMP 96.6; O2SAT 92
[2016-06-08] MEDS: REMOVE OLD PATCH T-DERMAL SCH (21:00)
[2016-06-09] VITALS: BP 115/82; PULSE 113; RESP 19; TEMP 95.9; O2SAT 92
[2016-06-09] MEDS: MORPHINE SULFATE 4 MG/ML INJ IV PRN (01:14)
[2016-06-09 05:26] LABS: HEMATOCRIT 37.2 % (39.0-51.0); MEAN CELL VOLUME 95.2 FL (80.0-100.0); MEAN CORPUSCULAR HEMOGLOBIN 32.7 PG (27.0-34.0); MEAN CORPUSCULAR HGB CONC 34.4 % (32.0-36.0); PLATELET COUNT 176 TH/MM3 (150-450); RED BLOOD COUNT 3.91 MIL/MM3 (4.50-5.90); RED CELL DISTRIBUTION WIDTH 13.6 % (11.6-17.2); REVIEW FLAG FINAL; WHITE BLOOD COUNT 9.9 TH/MM3 (4.0-11.0)
[2016-06-09 05:36] LABS: INTERNATIONAL NORMALIZED RATIO 1.3 RATIO; PROTHROMBIN TIME - PATIENT 14.5 SEC (9.8-11.6)
[2016-06-09] MEDS: LEVOTHYROXINE SODIUM 25 MCG TAB PO SCH (05:52)
[2016-06-09] MEDS: METHOCARBAMOL 500 MG TAB PO SCH ×2 (05:52→13:13)
[2016-06-09 08:00] VITALS: BP 141/68; PULSE 104; RESP 16; TEMP 96; O2SAT 90
[2016-06-09] MEDS: ATORVASTATIN 40 MG TAB PO SCH (09:26)
[2016-06-09] MEDS: amLODIPine BESYLATE 5 MG TAB PO SCH (09:26)
[2016-06-09] MEDS: RAMIPRIL 5 MG CAP PO SCH (09:26)
[2016-06-09] MEDS: DOCUSATE SODIUM 50 MG/SENNA 8.6 MG TAB PO SCH (09:26)
[2016-06-09] MEDS: METOPROLOL SUCCINATE 50 MG EXTENDED RELEASE TAB PO SCH (09:27)
[2016-06-09] MEDS: FAMOTIDINE 20 MG TAB PO SCH (09:27)
[2016-06-09] MEDS: AMIODARONE 200 MG TAB PO SCH (09:27)
[2016-06-09] MEDS: MAGNESIUM HYDROXIDE SUSP 30 ML CUP PO SCH (09:27)
[2016-06-09] MEDS: FUROSEMIDE 20 MG TAB PO SCH (09:27)
[2016-06-09] MEDS: LIDOCAINE HCL 5% PATCH TD SCH (09:30)
[2016-06-09] MEDS: HYDROmorphone HCL 2 MG TAB PO PRN (09:32)
--- NOTE | 2016-06-09 11:01 | HHI.PR ---
Subjective Remarks Pain is better controlled today. DW daughter at bedside. He is ambulatory but needs assistance. Objective Vitals Vital Signs Date Time Temp Pulse Resp B/P Pulse Ox O2 Delivery O2 Flow Rate FiO2 06/09/16 08:00 96.0 104 16 141/68 90 06/09/16 02:07 18 06/09/16 00:00 95.9 113 19 115/82 92 06/08/16 23:24 16 06/08/16 20:00 96.6 119 19 128/72 92 06/08/16 12:00 98.5 98 17 152/75 94 I/O 06/08/16 06/08/16 06/08/16 06/09/16 06/09/16 06/09/16 07:00 15:00 23:00 07:00 15:00 23:00 Intake Total 240 ml 360 ml 240 ml 240 ml Output Total 350 ml Balance 240 ml 360 ml 240 ml -110 ml Intake Oral 240 ml 360 ml 240 ml 240 ml IV Total 0 ml 0 ml Output Urine Total 350 ml # Voids 2 4 2 1 # Bowel Movements 0 Result Diagram: 06/09/16 0411 06/08/16 0341 Objective Remarks GENERAL: This is a well-nourished, well-developed patient, in no apparent distress. CARDIOVASCULAR: Normal rate and regular rhythm without murmurs, gallops, or rubs. RESPIRATORY: Good respiratory efforts. Breath sounds equal and clear to auscultation bilaterally. GASTROINTESTINAL: Abdomen soft, non-tender, non-distended. Normal active bowel sounds MUSCULOSKELETAL: Left arm/shoulder in a splint. Neurovascularly intact at the fingers. Tender to palpation over the left lower ribs anteriorly. NEURO: Alert & Oriented x4 to person, place, time, situation. Moves all ext x4 PSYCH: Appropriate mood and affect. A/P Problem List: (1) Ribs, multiple fractures ICD Code: S22.49XA Status: Acute (2) Left scapula fracture ICD Code: S42.102A Status: Acute (3) Traumatic injury ICD Code: T14.90 Status: Acute Plan: Continue medical management for now, trauma service following. Patient with scapular fracture, rib fractures and small pneumothorax continue with pain medications. Minimize IV pain medication use in anticipation for discharge home. Continue with incentive spirometry. (4) HTN (hypertension) ICD Code: I10 Status: Acute Plan: Stable at this time, continue home medications and pain control (5) Afib ICD Code: I48.91 Status: Acute Plan: Rate slightly elevated today. Probably related to pain and some mild dehydration. He is not eating or drinking much. Continue home antiarrhythmics. Hold Lasix for now as he appear to be mildly dehydrated. Encourage oral fluid intake. Continue warfarin. Discharge Planning Stable medically for DC if pain can be controlled with oral medications. I discussed with his daughter. He is at risk for setbacks if he does not stay active, use incentive spirometry at home. Would advised DC with HHC and PT. DC planning per primary Problem Qualifiers (1) Ribs, multiple fractures: Qualified Code: S22.42XA - Closed fracture of multiple ribs of left side, initial encounter (2) Left scapula fracture: Qualified Code: S42.192A - Closed fracture of other part of left scapula, initial encounter Belkis Winters MD Jun 09, 2016 11:01
[2016-06-09 12:00] VITALS: BP 148/77; PULSE 121; RESP 16; TEMP 96; O2SAT 90
[2016-06-09] MEDS ORDERED: LACTULOSE SYRUP 20 GM/30 ML CUP PO ONE (12:45)
[2016-06-09] MEDS: SODIUM CHLORIDE FLUSH BID IVF SCH (13:13)
--- NOTE | 2016-06-09 13:52 | HHI.FF ---
Face to Face Verification Diagnosis: (1) Traumatic injury (2) Ribs, multiple fractures (3) Left scapula fracture Physical Therapy Order: Evaluate and Treat, Improve ambulation, Strength and gait training Home Health Nursing Order: Nursing assessment with vital signs I have seen patient Aryan Vázquez on 06/09/16. My clinical findings support the need for the requested home health care services because: Ltd mobility - disease progression Deconditioned w/ increased weakness Limited ability to care for self I certify that my clinical findings support that this patient is homebound because: Unsteady gait/balance Mirna Dejesus Jun 09, 2016 13:52
[2016-06-09] MEDS ORDERED: LIDO5DIS35 TD (14:41)
[2016-06-09] MEDS ORDERED: METH500T3 PO (14:41)
[2016-06-09] MEDS ORDERED: SENN1TAB PO (14:41)
[2016-06-09] MEDS ORDERED: OXYC1TAB63 PO (15:17)
--- NOTE | 2016-06-09 15:57 | HHI.DS ---
Discharge Summary Admission Date Jun 06, 2016 at 17:59 Discharge Date: Jun 09, 2016 Admitting Diagnosis RIB FRACTURES, LEFT PNEUMOTHORAX, FX SCAPULA Brief History S/P Trauma: Fall CBC/BMP: 06/09/16 0411 06/08/16 0341 Significant Findings Laboratory Tests Test 06/06/16 06/07/16 06/07/16 06/08/16 17:56 04:20 10:55 03:41 White Blood Count 13.4 TH/MM3 13.0 TH/MM3 11.1 TH/MM3 (4.0-11.0) (4.0-11.0) (4.0-11.0) Neutrophils (%) (Auto) 83.0 % (16.0-70.0) Lymphocytes (%) (Auto) 8.4 % (9.0-44.0) Neutrophils # (Auto) 11.2 TH/MM3 (1.8-7.7) Blood Urea Nitrogen 28 MG/DL (7-18) 40 MG/DL (7-18) 32 MG/DL (7-18) Estimat Glomerular Filtration 57 ML/MIN (>89) 52 ML/MIN (>89) 70 ML/MIN (>89) Rate Random Glucose 119 MG/DL 143 MG/DL 120 MG/DL (74-106) (74-106) (74-106) Prothrombin Time 19.0 SEC 18.8 SEC (9.8-11.6) (9.8-11.6) Activated Partial 32.0 SEC Thromboplast Time (24.3-30.1) Red Blood Count 4.21 MIL/MM3 4.00 MIL/MM3 (4.50-5.90) (4.50-5.90) Chloride Level 108 MEQ/L (98-107) Hemoglobin 12.8 GM/DL (13.0-17.0) Hematocrit 38.5 % (39.0-51.0) Test 06/09/16 04:11 Red Blood Count 3.91 MIL/MM3 (4.50-5.90) Hemoglobin 12.8 GM/DL (13.0-17.0) Hematocrit 37.2 % (39.0-51.0) Prothrombin Time 14.5 SEC (9.8-11.6) Imaging Last Impressions Chest X-Ray 06/07/16 0000 Signed Impressions: Service Date/Time: Tuesday, June 07, 2016 06:31 - CONCLUSION: No acute disease. Derek Burgess MD Chest CT 06/07/16 0000 Signed Impressions: Service Date/Time: Tuesday, June 07, 2016 11:34 - CONCLUSION: 1. Trace pneumothorax in the left lung base. 2. Bibasilar parenchymal changes. 3. Otherwise negative for acute traumatic injury. Jose Harris MD FACR Upper Extremity CT 06/06/16 0000 Signed Impressions: Service Date/Time: Monday, June 06, 2016 17:00 - CONCLUSION: 1. Minimally displaced fracture through the scapular spine with approximately 3 mm of distraction of the fracture fragment. Alignment is otherwise anatomic. 2. Small left pneumothorax with a tiny left pleural effusion. 3. Marked narrowing of the acromiohumeral interval characteristic of a chronic rotator cuff injury. 4. Pleural-based calcifications in the left hemithorax characteristic of prior asbestos exposure. Jef Jones MD Shoulder X-Ray 06/06/16 0000 Signed Impressions: Service Date/Time: Monday, June 06, 2016 14:50 - CONCLUSION: 1. Evidence of chronic rotator cuff degeneration as described. 2. Osteopenia with no acute fracture or malalignment. Dino Byrd MD Ribs X-Ray 06/06/16 0000 Signed Impressions: Service Date/Time: Monday, June 06, 2016 14:44 - CONCLUSION: Subtle nondisplaced fractures of the left eighth and ninth posterior lateral ribs. Dino Byrd MD PE at Discharge GENERAL: 85 year old well-nourished, well developed male lying in bed. SKIN: Warm and dry. NECK: Trachea midline. No JVD. CARDIOVASCULAR: Regular rate and rhythm. RESPIRATORY: No accessory muscle use. Lungs clear to auscultation. Breath sounds equal bilaterally. GASTROINTESTINAL: Abdomen soft, non-tender, nondistended. + BS. MUSCULOSKELETAL: Extremities without cyanosis, or edema. No obvious deformities. LEFT arm sling, + sensation, GÓMEZ. NEUROLOGICAL: Awake and alert. Normal speech. Hospital Course [facility] [place] [facility]: Fell over sprinkler head landing on LEFT side. No LOC. Initial complaints of left shoulder and left rib pain. On Coumadin INR 1.9 on admission. INJURIES: LEFT rib fx (8,9) LEFT scapula fx Small left PTX (resolved) Diet: Regular, tolerating Pulmonary: IS, encouraged home use. Pain: Percocet. Robaxin. Dilaudid 2 PO q6, Lidocaine patch. Pain controlled. Activity: OOB, PT, OT evaluated. PT recommends home PT ([facility])- maintain sling. GI: Pepcid Bowel: Pericolace. MOM. DVT: SCD Plan of care discussed patient at bedside. Follow-up with Ortho as outpatient. Patient is clear from trauma surgery standpoint to safely discharge home with HHC. Pt Condition on Discharge: Stable Discharge Disposition: Disch w/ Home Health Serv Discharge Instructions DIET: Follow Instructions for: As Tolerated, No Restrictions Activities you can perform: See Additionl Instruction Activities to Avoid: Weight Bearing, Strenuous Activity Other Activity Instructions: Nonweight bearing to left arm. Wear sling on left arm. Mirna Dejesus Jun 09, 2016 15:57
[2016-06-09] MEDS ORDERED: WARFARIN SOD 4 MG TAB PO SCH (16:00)
[2016-06-09 17:00] VITALS: BP 114/74; PULSE 119; RESP 16; TEMP 97; O2SAT 90
== END 2016-06-09 16:51 | disposition home health service (06) | DRG 563 ==
LOC: PHED 13:31 → PHEDA 17:59 → PHEDH 21:59 → N07B 06-07 20:43
PROVIDERS: ADMIT Surgery; ATTEND Surgery
DX: S42.102A Fracture of unspecified part of scapula, left shoulder, initial encounter for closed fracture (principal); J90 Pleural effusion, not elsewhere classified; S27.0XXA Traumatic pneumothorax, initial encounter; I48.91 Unspecified atrial fibrillation; E86.0 Dehydration; S22.42XA Multiple fractures of ribs, left side, initial encounter for closed fracture; I25.810 Atherosclerosis of coronary artery bypass graft(s) without angina pectoris; I10 Essential (primary) hypertension; E03.9 Hypothyroidism, unspecified; K21.9 Gastro-esophageal reflux disease without esophagitis; W18.09XA Striking against other object with subsequent fall, initial encounter; Y92.9 Unspecified place or not applicable; Z79.01 Long term (current) use of anticoagulants; Z87.442 Personal history of urinary calculi; Z95.1 Presence of aortocoronary bypass graft
CPT/HCPCS: 71020; 71101; 71260; 73030; 73200; 80048; 85025; 85027; 85610; 85730; 94150; 94640; 94667; 94668; 96374; 96375; 96376; J0131; J2270; J2405; Q9967

== ENCOUNTER → 2016-11-21 | Outpatient (CLI) | payer MEDICARE, OTHER ==
[~2016-11-21] MED LIST changes: +ALLE10TA10 PO; +AMIO200T PO; +ASPI1TAB69 PO; -ASPI81TA82 PO; +CALCTAB23 PO; +FURO1TAB62 PO; -GABA300C3 PO; +GINK120T2 PO; -GLUC500C3 PO; +GLUC500C5 PO; -GNP120TA3 PO; -LASI20TA PO; -LEVO.025 PO; +LEVO25TA4 PO; +LIDO5DIS35 TD; +LORA-373 PO; -LORA0.5T PO; -LYSI1TAB2 PO; +LYSI1TAB4 PO; +METH500T3 PO; -METO50TA11 PO; +MULTTAB23 PO; +OXYC1TAB63 PO; -PACE200T4 PO; +POTA-243 PO; -POTA-267 PO; -SENITAB PO; +SENN1TAB PO; +TOPR50TA PO; -VITA100018 PO; +VITA100064 PO; -[UNRECOGNIZED DRUG - CODE] PO
[2016-11-21 12:13] LABS: BICARBONATE 26.4 MEQ/L (21.0-32.0)
[2016-11-21 12:23] LABS: HDL CHOLESTEROL 60.8 MG/DL (40.0-60.0)
== END ==
LOC: PLAB 09:07
PROVIDERS: ATTEND Internal Medicine Interventional Cardiology
DX: I11.9 Hypertensive heart disease without heart failure (principal); I48.0 Paroxysmal atrial fibrillation; I65.23 Occlusion and stenosis of bilateral carotid arteries; I25.10 Atherosclerotic heart disease of native coronary artery without angina pectoris; E78.00 Pure hypercholesterolemia, unspecified; R53.81 Other malaise
CPT/HCPCS: 36415; 80048; 80061; 84443; 84450; 84460

== ENCOUNTER 2017-04-15 12:49 | Emergency (ER) | payer MEDICARE, OTHER ==
[~2017-04-15] VITALS: Ht 162.6 cm; Wt 70.0 kg
[~2017-04-15 12:49] MED LIST changes: +KLOR10TA PO; -LORA-373 PO; +LORA0.5T PO; -LYSI1TAB4 PO; +LYSI500T12 PO; -POTA-243 PO
[2017-04-15 12:51] VITALS: BP 167/72; PULSE 55; RESP 16; TEMP 98.9; O2SAT 95
[2017-04-15] MEDS ORDERED: SODIUM CHLORIDE 0.9% FLUSH 10 ML FLUSH IVF PRN (14:15)
[2017-04-15] MEDS ORDERED: ONDANSETRON HCL 4 MG/2 ML VIAL IV PUSH ONE (14:15)
[2017-04-15] MEDS ORDERED: KETOROLAC TROMETHAMINE 30 MG/ML (IVP) VIAL IV PUSH ONE (14:15)
[2017-04-15] MEDS ORDERED: TRAM50TA PO (14:23)
[2017-04-15] MEDS ORDERED: LUTE20CA PO (14:24)
--- NOTE | 2017-04-15 14:57 | PD ---
HPI Chief Complaint: Flank/Kidney Pain Time Seen by Provider: 14:14 Travel History International Travel<30 days: No Contact w/Intl Traveler<30days: No Traveled to known affect area: No History of Present Illness HPI Patient is a-year-old male presenting to the emergency department evaluation of right lower back, flank pain. Patient states it started this morning when he woke up. He states the pain is throbbing, a 6 out of 10. While he was driving to the hospital he states he vomited. The pain is worse with breathing, movement does not exacerbate it. He also reports dysuria and frequency but states is a chronic issue. He has a history of kidney stones remotely. Patient denies any chest pain, shortness of breath, abdominal pain, fevers. He denies any injury or trauma to his back. PFSH Past Medical History Hx Anticoagulant Therapy: Yes (coumadin therapy) Atrial Fibrillation: Yes Heart Rhythm Problems: Yes (AF on coumadin) Cardiovascular Problems: Yes High Cholesterol: Yes Coronary Artery Disease: Yes Diminished Hearing: No Endocrine: No Gastrointestinal Disorders: Yes GERD: Yes Genitourinary: Yes Hypertension: Yes (controlled on meds) Immune Disorder: No Implanted Vascular Access Dvce: No Kidney Stones: Yes Musculoskeletal: Yes Neurologic: Yes Psychiatric: No Reproductive: No Respiratory: No Thyroid Disease: Yes (on meds unsure of name) Tetanus Vaccination: > 5 Years Influenza Vaccination: Yes Past Surgical History Abdominal Surgery: No Cardiac Surgery: Yes (5 vessel bypass more than 20 years ago) Cholecystectomy: Yes Coronary Artery Bypass Graft: Yes (5 arteries) Eye Surgery: Yes (bilat cataract removal) Other Surgery: Yes (testicular sx) Social History Alcohol Use: No Tobacco Use: No Substance Use: No Allergies-Medications (Allergen,Severity, Reaction): Coded Allergies: codeine (Unverified Allergy, Severe, Nausea/Vomiting, 04/15/17) Reported Meds & Prescriptions Reported Meds & Active Scripts Active Reported Lutein 20 Mg Cap 20 Mg PO DAILY Tramadol (Tramadol HCl) 50 Mg Tab 50 Mg PO Q6H PRN Lorazepam 0.5 Mg Tab 1 Mg PO HS PRN Klor-Con 10 (Potassium Chloride) 10 Meq Tab 10 Meq PO DAILY Glucosamine (Glucosamine Sulfate) 500 Mg Cap 500 Mg PO DAILY Lysine (Lysine HCl) 500 Mg Tab 1 Tab PO DAILY Warfarin 4 Mg Tab 4 Mg PO DAILY Levothyroxine (Levothyroxine Sodium) 25 Mcg Tab 50 Mcg PO DAILY Toprol XL (Metoprolol Succinate) 50 Mg Tab 50 Mg PO DAILY Vitamin D3 (Cholecalciferol) 1,000 Unit Tab 1,000 Units PO DAILY Amiodarone (Amiodarone HCl) 200 Mg Tab 100 Mg PO 3 TIMES A WEEK Ramipril 10 Mg Cap 10 Mg PO DAILY Review of Systems Except as stated in HPI: all other systems reviewed are Neg General / Constitutional: No: Fever, Chills HENT: No: Headaches Cardiovascular: No: Chest Pain or Discomfort Gastrointestinal: Positive: Nausea, Vomiting, No: Abdominal Pain Genitourinary: Positive: Frequency, Dysuria, Flank Pain Musculoskeletal: Positive: Myalgias Physical Exam Narrative GENERAL: Well-developed, well-nourished, alert elderly male. Resting comfortably in no acute distress. SKIN: Warm and dry. HEAD: Atraumatic. Normocephalic. EYES: Pupils equal and round. No scleral icterus. No injection or drainage. ENT: No nasal bleeding or discharge. Mucous membranes pink and moist. NECK: Trachea midline. No JVD. CARDIOVASCULAR: Regular rate and rhythm. RESPIRATORY: No accessory muscle use. Clear to auscultation. Breath sounds equal bilaterally. GASTROINTESTINAL: Abdomen soft, non-tender, nondistended. Hepatic and splenic margins not palpable. Positive bowel sounds, no rebound, no guarding. MUSCULOSKELETAL: Extremities without clubbing, cyanosis, or edema. No obvious deformities. No CVAT bilaterally. TTP right flank NEUROLOGICAL: Awake and alert. No obvious cranial nerve deficits. Motor grossly within normal limits. Five out of 5 muscle strength in the arms and legs. Normal speech. PSYCHIATRIC: Appropriate mood and affect; insight and judgment normal. Data Data Last Documented VS Vital Signs Date Time Temp Pulse Resp B/P (MAP) Pulse Ox O2 Delivery O2 Flow Rate FiO2 04/15/17 15:32 16 04/15/17 14:15 89 04/15/17 12:51 98.9 167/72 (103) 95 Orders Orders Complete Blood Count With Diff (04/15/17 14:15) Comprehensive Metabolic Panel (04/15/17 14:15) Urinalysis - C+S If Indicated (04/15/17 14:15) Ct Abd/Pel W/O Iv Contrast (12/17/17 14:15) Ecg Monitoring (04/15/17 14:15) Iv Access Insert/Monitor (04/15/17 14:15) Ketorolac Inj (Toradol Inj) (04/15/17 14:15) Ondansetron Inj (Zofran Inj) (04/15/17 14:15) Sodium Chloride 0.9% Flush (Ns Flush) (04/15/17 14:15) Ed Discharge Order (04/15/17 16:45) Labs Laboratory Tests Test 04/15/17 14:30 04/15/17 14:53 White Blood Count 11.0 TH/MM3 Red Blood Count 4.14 MIL/MM3 Hemoglobin 13.8 GM/DL Hematocrit 39.2 % Mean Corpuscular Volume 94.7 FL Mean Corpuscular Hemoglobin 33.4 PG Mean Corpuscular Hemoglobin Concent 35.2 % Red Cell Distribution Width 14.2 % Platelet Count 197 TH/MM3 Mean Platelet Volume 8.3 FL Neutrophils (%) (Auto) 88.8 % Lymphocytes (%) (Auto) 6.5 % Monocytes (%) (Auto) 4.5 % Eosinophils (%) (Auto) 0.0 % Basophils (%) (Auto) 0.2 % Neutrophils # (Auto) 9.8 TH/MM3 Lymphocytes # (Auto) 0.7 TH/MM3 Monocytes # (Auto) 0.5 TH/MM3 Eosinophils # (Auto) 0.0 TH/MM3 Basophils # (Auto) 0.0 TH/MM3 CBC Comment DIFF FINAL Differential Comment Blood Urea Nitrogen 22 MG/DL Creatinine 1.17 MG/DL Random Glucose 148 MG/DL Total Protein 7.1 GM/DL Albumin 3.9 GM/DL Calcium Level 9.3 MG/DL Alkaline Phosphatase 80 U/L Aspartate Amino Transf (AST/SGOT) 21 U/L Alanine Aminotransferase (ALT/SGPT) 37 U/L Total Bilirubin 0.5 MG/DL Sodium Level 142 MEQ/L Potassium Level 4.6 MEQ/L Chloride Level 110 MEQ/L Carbon Dioxide Level 24.2 MEQ/L Anion Gap 8 MEQ/L Estimat Glomerular Filtration Rate 59 ML/MIN Urine Color YELLOW Urine Turbidity HAZY Urine pH 5.5 Urine Specific [place] 1.022 Urine Protein 30 mg/dL Urine Glucose (UA) 300 mg/dL Urine Ketones NEG mg/dL Urine Occult Blood LARGE Urine Nitrite NEG Urine Bilirubin NEG Urine Urobilinogen LESS THAN 2.0 MG/DL Urine Leukocyte Esterase NEG Urine RBC /hpf Urine WBC 1 /hpf Urine Bacteria OCC /hpf Urine Hyaline Casts 1 /lpf Urine Mucus MANY /lpf Microscopic Urinalysis Comment CULT NOT INDICATED MDM Medical Decision Making Medical Screen Exam Complete: Yes Emergency Medical Condition: Yes Medical Record Reviewed: Yes Interpretation(s) Last Impressions Abdomen/Pelvis CT 04/15/17 1415 Signed Impressions: Service Date/Time: Saturday, April 15, 2017 15:40 - CONCLUSION: 2 mm calcification probable stone left side of the bladder. Numerous stones overlie each kidney without any symptomatic ureteral stones identified.. Joseph Ding MD Laboratory Tests Test 04/15/17 14:30 04/15/17 14:53 White Blood Count 11.0 TH/MM3 Red Blood Count 4.14 MIL/MM3 Hemoglobin 13.8 GM/DL Hematocrit 39.2 % Mean Corpuscular Volume 94.7 FL Mean Corpuscular Hemoglobin 33.4 PG Mean Corpuscular Hemoglobin Concent 35.2 % Red Cell Distribution Width 14.2 % Platelet Count 197 TH/MM3 Mean Platelet Volume 8.3 FL Neutrophils (%) (Auto) 88.8 % Lymphocytes (%) (Auto) 6.5 % Monocytes (%) (Auto) 4.5 % Eosinophils (%) (Auto) 0.0 % Basophils (%) (Auto) 0.2 % Neutrophils # (Auto) 9.8 TH/MM3 Lymphocytes # (Auto) 0.7 TH/MM3 Monocytes # (Auto) 0.5 TH/MM3 Eosinophils # (Auto) 0.0 TH/MM3 Basophils # (Auto) 0.0 TH/MM3 CBC Comment DIFF FINAL Differential Comment Blood Urea Nitrogen 22 MG/DL Creatinine 1.17 MG/DL Random Glucose 148 MG/DL Total Protein 7.1 GM/DL Albumin 3.9 GM/DL Calcium Level 9.3 MG/DL Alkaline Phosphatase 80 U/L Aspartate Amino Transf (AST/SGOT) 21 U/L Alanine Aminotransferase (ALT/SGPT) 37 U/L Total Bilirubin 0.5 MG/DL Sodium Level 142 MEQ/L Potassium Level 4.6 MEQ/L Chloride Level 110 MEQ/L Carbon Dioxide Level 24.2 MEQ/L Anion Gap 8 MEQ/L Estimat Glomerular Filtration Rate 59 ML/MIN Urine Color YELLOW Urine Turbidity HAZY Urine pH 5.5 Urine Specific [place] 1.022 Urine Protein 30 mg/dL Urine Glucose (UA) 300 mg/dL Urine Ketones NEG mg/dL Urine Occult Blood LARGE Urine Nitrite NEG Urine Bilirubin NEG Urine Urobilinogen LESS THAN 2.0 MG/DL Urine Leukocyte Esterase NEG Urine RBC /hpf Urine WBC 1 /hpf Urine Bacteria OCC /hpf Urine Hyaline Casts 1 /lpf Urine Mucus MANY /lpf Microscopic Urinalysis Comment CULT NOT INDICATED Vital Signs Date Time Temp Pulse Resp B/P (MAP) Pulse Ox O2 Delivery O2 Flow Rate FiO2 04/15/17 14:15 89 16 04/15/17 12:51 98.9 55 16 167/72 (103) 95 Differential Diagnosis UTI versus kidney stone versus pyelonephritis versus metabolic abnormality versus muscle spasm versus other Narrative Course Patient is an 86-year-old male that presented to emergency department evaluation of right lower back/flank pain. Patient's vital signs are stable, he is well-appearing. Labs and imaging ordered and pending. CBC is unremarkable Chemistry the BUN 22, otherwise unremarkable. Urinalysis was large occult blood and innumerable red blood cells CT scan abdomen and pelvis which was read by the radiologist shows 2 mm calcification probable stone left side of the bladder. Numerous stones overlie each kidney without any symptomatic ureteral stones identified. Patient likely passed kidney stone. Patient reports feeling better after administration of Toradol. At this time patient will be discharged home, encouraged follow-up with his primary doctor return to emergency department for any new or worsening symptoms. He was reassured this time that there were no acute findings. He was encouraged to take [id number] acetaminophen as needed and as directed for pain. Patient daughter verbalized understanding of discharge instructions. Patient stable for discharge. Diagnosis Primary Impression: Flank pain Additional Impression: Hematuria Qualified Codes: R31.9 - Hematuria, unspecified Referrals: Primary Care Physician 2 days Patient Instructions: Flank Pain (ED), General Instructions, Kidney Stones (DC) Additional Instructions: Follow-up with your primary doctor Increase oral fluid intake Take acetaminophen as needed and as directed for pain Return to emergency department for any new or worsening symptoms Med/Other Pt SpecificInfo: No Change to Meds Disposition: 01 DISCHARGE HOME Condition: Stable Flor Manzanares Apr 15, 2017 14:57
[2017-04-15 15:06] LABS: AUTOMATED NEUTROPHIL # 9.8 TH/MM3 (1.8-7.7); BASOPHIL % 0.2 % (0.0-2.0); HEMATOCRIT 39.2 % (39.0-51.0); HEMOGLOBIN 13.8 GM/DL (13.0-17.0); LYMPH % 6.5 % (9.0-44.0); LYMPHOCYTE # 0.7 TH/MM3 (1.0-4.8); MEAN CELL VOLUME 94.7 FL (80.0-100.0); MEAN CORPUSCULAR HEMOGLOBIN 33.4 PG (27.0-34.0); MEAN CORPUSCULAR HGB CONC 35.2 % (32.0-36.0); MEAN PLATELET VOLUME 8.3 FL (7.0-11.0); MONO % 4.5 % (0.0-8.0); MONOCYTE # 0.5 TH/MM3 (0-0.9); NEUT % 88.8 % (16.0-70.0); PLATELET COUNT 197 TH/MM3 (150-450); RED BLOOD COUNT 4.14 MIL/MM3 (4.50-5.90); RED CELL DISTRIBUTION WIDTH 14.2 % (11.6-17.2)
[2017-04-15 15:21] LABS: ALBUMIN 3.9 GM/DL (3.4-5.0); ALT (GPT) 37 U/L (12-78); AST (GOT) 21 U/L (15-37); BICARBONATE 24.2 MEQ/L (21.0-32.0); BLOOD UREA NITROGEN 22 MG/DL (7-18); CALCIUM 9.3 MG/DL (8.5-10.1); CHLORIDE 110 MEQ/L (98-107); CREATININE 1.17 MG/DL (0.60-1.30); GLOMERULAR FILTRATION RATE 59 ML/MIN (>89); GLUCOSE,RANDOM 148 MG/DL (74-106); SODIUM (NA) 142 MEQ/L (136-145)
[2017-04-15 15:23] LABS: ALKALINE PHOSPHATASE 80 U/L (45-117); TOTAL BILIRUBIN ADULT 0.5 MG/DL (0.2-1.0); TOTAL PROTEIN 7.1 GM/DL (6.4-8.2)
[2017-04-15 15:29] LABS: BACTERIA, URINE OCC /hpf; BILIRUBIN, URINE NEG (NEG); BLOOD, URINE LARGE (NEG); GLUCOSE,URINE 300 mg/dL (NEG); HYALINE CAST, URINE 1 /lpf (RARE); KETONE, URINE NEG (NEG); MUCUS URINE MANY /lpf (OCC); NITRITE,URINE NEG (NEG); PH, URINE 5.5 (5.0-8.5); URINE COLOR YELLOW (YELLW/STRAW); URINE LEUKOCYTE ESTERASE NEG (NEG)
--- NOTE | 2017-04-15 16:10 | RADRPT ---
EXAM DATE/TIME: 04/15/2017 15:40 [facility] COMPARISON: No previous studies available for comparison. INDICATIONS : Right sided pain with burning and frequency of urination. ORAL CONTRAST: No oral contrast ingested. RADIATION DOSE: 7.29 CTDIvol (mGy) MEDICAL HISTORY : Cardiovascular disease. Hypertension. Gastroesophageal reflux disease.afib SURGICAL HISTORY : CABG Testicular ENCOUNTER: Initial ACUITY: 1 day PAIN SCALE: 5/10 LOCATION: Right flank TECHNIQUE: Volumetric scanning of the abdomen and pelvis was performed. Using automated exposure control and ad justment of the mA and/or kV according to patient size, radiation dose was kept as low as reasonably achievable to obtain optimal diagnostic quality images. DICOM format image data is available electro nically for review and comparison. FINDINGS: LOWER LUNGS: The visualized lower lungs are clear. LIVER: Homogeneous density without lesion. There is no dilation of the biliary tree. Cholecystectomy clips. SPLEEN: Normal size without lesion. PANCREAS: Within normal limits. KIDNEYS: There are no dilatation scattered throughout both kidneys. Neither collecting system is dilated.. ADRENAL GLANDS: Within normal limits. VASCULAR: Dense coronary atherosclerotic disease.. BOWEL/MESENTERY: The stomach, small bowel, and colon demonstrate no acute abnormality. There is no free intraperitone al air or fluid. ABDOMINAL WALL: Within normal limits. RETROPERITONEUM: There is no lymphadenopathy. BLADDER: Sulkowski's left of the bladder could be recently passed right ureteral stone based on the patient's symptoms. REPRODUCTIVE: Within normal limits. INGUINAL: There is no lymphadenopathy or hernia. MUSCULOSKELETAL: Within normal limits for patient age. CONCLUSION: 2 mm calcification probable stone left side of the bladder. Numerous stones overlie each kidney witho ut any symptomatic ureteral stones identified.. Joseph Ding MD on April 15, 2017 at 16:02 Board Certified Radiologist. This report was verified electronically.
[2017-04-15 17:10] VITALS: BP 130/78; TEMP 97.8
== END 2017-04-15 17:10 | disposition home or self-care (01) ==
LOC: NEPE 12:49
DX: I25.10 Atherosclerotic heart disease of native coronary artery without angina pectoris (principal); R31.9 Hematuria, unspecified; R11.2 Nausea with vomiting, unspecified; M79.1 Myalgia; I48.91 Unspecified atrial fibrillation; I10 Essential (primary) hypertension; K21.9 Gastro-esophageal reflux disease without esophagitis; E78.00 Pure hypercholesterolemia, unspecified; N20.0 Calculus of kidney
CPT/HCPCS: 74176; 80053; 81001; 85025; 96374; 96375; 99285; J1885; J2405

== ENCOUNTER → 2017-05-10 | Outpatient (CLI) | payer MEDICARE, OTHER ==
[~2017-05-10] MED LIST changes: -ALLE10TA10 PO; -ASPI1TAB69 PO; -CALCTAB23 PO; -FURO1TAB62 PO; -GINK120T2 PO; -LIDO5DIS35 TD; +LUTE20CA PO; -METH500T3 PO; -MULTTAB23 PO; -OXYC1TAB63 PO; -SENN1TAB PO; +TRAM50TA PO; -[UNRECOGNIZED DRUG - CODE] PO
[2017-05-10 13:26] LABS: ALBUMIN 3.5 GM/DL (3.4-5.0); ALT (GPT) 31 U/L (12-78); AST (GOT) 20 U/L (15-37); BICARBONATE 26.8 MEQ/L (21.0-32.0); BLOOD UREA NITROGEN 20 MG/DL (7-18); CALCIUM 8.7 MG/DL (8.5-10.1); CHLORIDE 109 MEQ/L (98-107); CREATININE 0.92 MG/DL (0.60-1.30); GLOMERULAR FILTRATION RATE 78 ML/MIN (>89); GLUCOSE,FASTING 88 MG/DL (74-99); SODIUM (NA) 143 MEQ/L (136-145)
[2017-05-10 13:28] LABS: ALKALINE PHOSPHATASE 76 U/L (45-117); TOTAL BILIRUBIN ADULT 0.7 MG/DL (0.2-1.0); TOTAL PROTEIN 6.5 GM/DL (6.4-8.2)
[2017-05-10 13:29] LABS: CHOLESTEROL/ HDL RATIO 2.05 RATIO; HDL CHOLESTEROL 61.8 MG/DL (40.0-60.0); HEMATOCRIT 41.2 % (39.0-51.0); MEAN CELL VOLUME 95.4 FL (80.0-100.0); MEAN CORPUSCULAR HEMOGLOBIN 32.4 PG (27.0-34.0); MEAN PLATELET VOLUME 8.1 FL (7.0-11.0); PLATELET COUNT 177 TH/MM3 (150-450); RED BLOOD COUNT 4.31 MIL/MM3 (4.50-5.90); RED CELL DISTRIBUTION WIDTH 14.5 % (11.6-17.2); WHITE BLOOD COUNT 6.4 TH/MM3 (4.0-11.0)
== END ==
LOC: PLAB 09:29
PROVIDERS: ATTEND Internal Medicine Interventional Cardiology
DX: E78.2 Mixed hyperlipidemia (principal); I95.2 Hypotension due to drugs; R42 Dizziness and giddiness; I65.23 Occlusion and stenosis of bilateral carotid arteries; I48.0 Paroxysmal atrial fibrillation; E78.00 Pure hypercholesterolemia, unspecified; I10 Essential (primary) hypertension; Z79.899 Other long term (current) drug therapy
CPT/HCPCS: 36415; 80053; 80061; 84443; 85027

== ENCOUNTER 2017-09-01 13:40 | Emergency (ER) | payer MEDICARE, OTHER ==
[~2017-09-01] VITALS: Ht 162.6 cm; Wt 66.7 kg
[2017-09-01 13:46] VITALS: BP 129/60; PULSE 85; RESP 18; TEMP 97.6; O2SAT 98
--- NOTE | 2017-09-01 14:13 | PD ---
HPI Chief Complaint: Head Injury Time Seen by Provider: 14:03 Travel History International Travel<30 days: No Contact w/Intl Traveler<30days: No Traveled to known affect area: No History of Present Illness HPI 86-year-old male came to the emergency room with history of fall and head injury. He says he has history of balance issues and today while walking tripped and was unable to control himself. He fell and hit his head on the right side as well as right shoulder. Patient is on Coumadin which is concerning to him with the head injury. He is here to be checked out. Patient did not lose consciousness before or after. Vital signs are stable otherwise. He does not recall his last tetanus shot. He has been applying ice pack on the head. Patient says that he has been diagnosed with rotator cuff issues on the right shoulder and after falling he thinks he may have aggravated it. [facility] Past Medical History Narrative Medical List of his past medical, surgical, social and family history is reviewed from the nursing note. Hx Anticoagulant Therapy: Yes Atrial Fibrillation: Yes Heart Rhythm Problems: Yes (AF on coumadin) Cardiovascular Problems: Yes High Cholesterol: Yes Coronary Artery Disease: Yes Diminished Hearing: No Endocrine: No Gastrointestinal Disorders: Yes GERD: Yes Genitourinary: Yes Hypertension: Yes (controlled on meds) Immune Disorder: No Implanted Vascular Access Dvce: No Kidney Stones: Yes Musculoskeletal: Yes Neurologic: Yes Psychiatric: No Reproductive: No Respiratory: No Thyroid Disease: Yes (on meds unsure of name) Tetanus Vaccination: Unknown Influenza Vaccination: Yes Past Surgical History Abdominal Surgery: No Cardiac Surgery: Yes (5 vessel 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 Reported Meds & Prescriptions Reported Meds & Active Scripts Active Hydrocodone-Acetaminophen 5-325 mg Tab 1 Tab PO Q6H PRN Reported Lutein 20 Mg Cap 20 Mg PO DAILY Lorazepam 0.5 Mg Tab 1 Mg PO HS PRN Klor-Con 10 (Potassium Chloride) 10 Meq Tab 10 Meq PO DAILY Glucosamine (Glucosamine Sulfate) 500 Mg Cap 500 Mg PO DAILY Lysine (Lysine HCl) 500 Mg Tab 1 Tab PO DAILY Warfarin 4 Mg Tab 4 Mg PO DAILY Levothyroxine (Levothyroxine Sodium) 25 Mcg Tab 50 Mcg PO DAILY Toprol XL (Metoprolol Succinate) 50 Mg Tab 50 Mg PO DAILY Vitamin D3 (Cholecalciferol) 1,000 Unit Tab 1,000 Units PO DAILY Amiodarone (Amiodarone HCl) 200 Mg Tab 100 Mg PO 3 TIMES A WEEK Ramipril 10 Mg Cap 10 Mg PO DAILY Narrative Medication List of his home medications reviewed from the nursing note. Review of Systems Except as stated in HPI: all other systems reviewed are Neg Musculoskeletal: Positive: Pain Physical Exam Narrative GENERAL: Awake, alert, mild distress SKIN: Focused skin assessment warm/dry. HEAD: Superficial abrasion and contusion on the right frontal aspect EYES: Pupils equal and round. No scleral icterus. No injection or drainage. ENT: No nasal bleeding or discharge. Mucous membranes pink and moist. NECK: Trachea midline. No JVD. CARDIOVASCULAR: Regular rate and rhythm. No murmur appreciated. RESPIRATORY: No accessory muscle use. Clear to auscultation. Breath sounds equal bilaterally. GASTROINTESTINAL: Abdomen soft, non-tender, nondistended. Hepatic and splenic margins not palpable. MUSCULOSKELETAL: No obvious deformities. No clubbing. No cyanosis. No edema. Crepitus of the right shoulder joint with some limited range of motion of the shoulder joint secondary to the pain NEUROLOGICAL: Awake and alert. No obvious cranial nerve deficits. Motor grossly within normal limits. Normal speech. PSYCHIATRIC: Appropriate mood and affect; insight and judgment normal. Data Data Last Documented VS Orders Orders Ct Brain W/O Iv Contrast(Rout) (09/01/17 ) Shoulder, Complete (>2vws) (09/01/17 ) Prothrombin Time / Inr (Pt) (09/01/17 14:20) Tetanus/Diphtheria Tox Adult (Tetanus/Di (09/01/17 14:30) Sling Cradle Arm (09/01/17 ) Ed Discharge Order (09/01/17 16:35) Sling Cradle Arm (09/01/17 ) Labs Laboratory Tests Test 09/01/17 14:40 Prothrombin Time 18.5 SEC Prothromb Time International Ratio 1.8 RATIO MDM Medical Decision Making Medical Screen Exam Complete: Yes Emergency Medical Condition: Yes Medical Record Reviewed: Yes Differential Diagnosis Intracranial bleed, shoulder fracture, contusion, shoulder strain Narrative Course 2:30 PM awaiting further CAT scan of the brain as well as x-ray of the shoulder. I have ordered INR to be checked as well. Patient will be getting tetanus shot. 4:[address] is within normal limit. Awaiting for the shoulder x-ray to be read. Patient will get an arm sling. He will be discharged home. 4:18 PM there is a humeral head fracture that is nondisplaced. I will discuss with the orthopedist client relations representative but patient should be able to go home with the arm sling. Procedures EKG Prior to Arrival: No Diagnosis Primary Impression: Fall Qualified Codes: W19.XXXA - Unspecified fall, initial encounter Additional Impressions: Shoulder contusion Qualified Codes: S40.011A - Contusion of right shoulder, initial encounter Head injury Qualified Codes: S09.90XA - Unspecified injury of head, initial encounter Humerus head fracture Qualified Codes: S42.291A - Other displaced fracture of upper end of right humerus, initial encounter for closed fracture Referrals: Ravindra Ngo MD 3 days Primary Care Physician Additional Instructions: Keep the shoulder sling on until you have been seen by your primary care. However should not be on for more than 3-4 days. Apply ice pack to keep the swelling down. Return to the ER if condition worsens or any other new concerns. Call the orthopedist office was name and number been provided to you. Follow-up with him as per the appointment. Med/Other Pt SpecificInfo: Prescription(s) given Scripts Hydrocodone-Acetaminophen (Hydrocodone-Acetaminophen) 5-325 mg Tab 1 TAB PO Q6H Y for PAIN, #10 TAB 0 Refills Prov: Lynda Penn MD 09/01/17 Disposition: 01 DISCHARGE HOME Condition: Stable Lynda Penn MD September 01, 2017 14:13
[2017-09-01] MEDS ORDERED: TETANUS/DIPHTHERIA TOXOID ADULT 0.5 ML VIAL IM ONE (14:30)
[2017-09-01 15:14] LABS: INTERNATIONAL NORMALIZED RATIO 1.8 RATIO; PROTHROMBIN TIME - PATIENT 18.5 SEC (9.8-11.6)
--- NOTE | 2017-09-01 15:56 | RADRPT ---
EXAM DATE/TIME: 09/01/2017 15:11 [facility] COMPARISON: CT BRAIN W/O CONTRAST, October 03, 2012, 14:21. INDICATIONS : Fell and hit head. RADIATION DOSE: 57.17 CTDIvol (mGy) MEDICAL HISTORY : Cardiovascular disease. Hypertension. Anticoagulant therapy. SURGICAL HISTORY : CABG ENCOUNTER: Initial ACUITY: 1 day PAIN SCALE: 3/10 LOCATION: Right frontal TECHNIQUE: Multiple contiguous axial images were obtained of the head. Using automated exposure control and adj ustment of the mA and/or kV according to patient size, radiation dose was kept as low as reasonably a chievable to obtain optimal diagnostic quality images. DICOM format image data is available electro nically for review and comparison. FINDINGS: CEREBRUM: The ventricles are normal for age. No evidence of midline shift, mass lesion, hemorrhage or acute in farction. No extra-axial fluid collections are seen. POSTERIOR FOSSA: The cerebellum and brainstem are intact. The 4th ventricle is midline. The cerebellopontine angle i s unremarkable. EXTRACRANIAL: The visualized portion of the orbits is intact. SKULL: The calvaria is intact. No evidence of skull fracture. CONCLUSION: No acute intracranial findings. Chirag Jones MD on September 01, 2017 at 15:53 Board Certified Radiologist. This report was verified electronically.
--- NOTE | 2017-09-01 16:14 | RADRPT ---
EXAM DATE/TIME: 09/01/2017 15:13 [facility] COMPARISON: No previous studies available for comparison. INDICATIONS : Pain due to fall. MEDICAL HISTORY : Cardiovascular disease. Hypertension. Gastroesophageal reflux disease.afib SURGICAL HISTORY : CABG Testicular ENCOUNTER: Initial ACUITY: 1 day PAIN SCORE: 5/10 LOCATION: Right upper extremity shoulder FINDINGS: Or views of the right shoulder. Vertical lucency is seen at the medial right humeral head. Finding is suspicious for either a posterior glenoid fracture or medial humeral head fracture. High riding myla ral head suggesting rotator cuff insufficiency. CONCLUSION: 1. Vertical lucency suspicious for posterior glenoid fracture or medial humeral head fracture. 2. High riding humeral head abutting the undersurface of the acromion indicating rotator cuff tendon tear, age indeterminate. Chirag Jones MD on September 01, 2017 at 16:10 Board Certified Radiologist. This report was verified electronically.
[2017-09-01] MEDS ORDERED: HYDR-3516 PO (16:37)
[2017-09-01 16:45] VITALS: BP 119/62; PULSE 84; RESP 18; O2SAT 97
== END 2017-09-01 16:49 | disposition home or self-care (01) ==
LOC: PHED 13:40
DX: S40.011A Contusion of right shoulder, initial encounter (principal); S09.90XA Unspecified injury of head, initial encounter; S42.294A Other nondisplaced fracture of upper end of right humerus, initial encounter for closed fracture; W01.0XXA Fall on same level from slipping, tripping and stumbling without subsequent striking against object, initial encounter; I10 Essential (primary) hypertension; I25.10 Atherosclerotic heart disease of native coronary artery without angina pectoris; I48.91 Unspecified atrial fibrillation; E78.00 Pure hypercholesterolemia, unspecified; Z23 Encounter for immunization
CPT/HCPCS: 70450; 73030; 85610; 90471; 90714

== ENCOUNTER → 2017-09-14 | Outpatient (CLI) | DX: E78.2 Mixed hyperlipidemia (principal); Z79.899 Other long term (current) drug therapy; I11.9 Hypertensive heart disease without heart failure; R60.0 Localized edema; I25.10 Atherosclerotic heart disease of native coronary artery without angina pectoris; I48.0 Paroxysmal atrial fibrillation; I65.23 Occlusion and stenosis of bilateral carotid arteries ==